=== PATIENT | male | born 1940 | race Caucasian/White ===

== ENCOUNTER 2018-04-25 01:38 | Emergency (ER) | payer MEDICARE, OTHER ==
[~2018-04-25] VITALS: Ht 167.6 cm; Wt 90.0 kg
--- NOTE | 2018-04-25 02:13 | NUR ---
PATIENT ASKED FOR MEDICATION LIST, DOES NOT HAVE LIST PATIENT STATES THAT HE WAS DOZING OFF IN HIS RECLINER AND WENT TO GET UP WHEN HE FELT REALLY DIZZY PATIENT TAKES ATIVAN 0.5 MG 12/19 TAB PRIOR TO LEAVING HOME; LAST NORCO WAS YESTERDAY PATIENT TAKES SYNTHROID, HCTZ, PLAVIX WELL
[2018-04-25 03:43] LABS: EOSINOPHILS # (AUTO) 0.2 X10'3 (0-0.9); EOSINOPHILS % (AUTO) 5.2 % (0-6); HEMATOCRIT 39.4 % (42.0-52.0); LYMPHOCYTES # (AUTO) 0.7 X10'3 (1.1-4.8); LYMPHOCYTES % (AUTO) 14.7 % (21-51); MEAN CORPUSCULAR HEMOGLOBIN 28.6 PG (27.0-31.0); MEAN CORPUSCULAR VOLUME 86.6 FL (78-98); MEAN PLATELET VOLUME 7.4 FL (7.4-10.4); MONOCYTES # (AUTO) 0.4 X10'3 (0-0.9); MONOCYTES % (AUTO) 8.5 % (2-12); NEUTROPHILS # (AUTO) 3.1 X10'3 (1.8-7.7); NEUTROPHILS % (AUTO) 70.6 % (42-75); PLATELET COUNT 268 X10'3 (140-440); RED BLOOD COUNT 4.55 X10'6 (4.70-6.10); RED CELL DISTRIBUTION WIDTH 14.9 % (11.5-14.5); WHITE BLOOD COUNT 4.4 X10'3 (4.5-11.0)
[2018-04-25 03:50] LABS: ALANINE AMINOTRANSFERASE 26 U/L (12-78); ALBUMIN 3.3 G/DL (3.4-5.0); ALBUMIN/GLOBULIN RATIO 0.9 (1.1-1.5); ALKALINE PHOSPHATASE 84 IU/L (46-116); ANION GAP 4 (8-16); ASPARTATE AMINO TRANSFERASE 16 U/L (10-37); BILIRUBIN,TOTAL 0.2 MG/DL (0.1-1.0); BLOOD UREA NITROGEN 25 MG/DL (7-18); BUN/CREATININE RATIO 19.4 (5.4-32.0); CALCIUM 9.4 MG/DL (8.5-10.1); CHLORIDE 104 MMOL/L (99-107); CREATININE 1.29 MG/DL (0.60-1.10); GLUCOSE 109 MG/DL (70-104); POTASSIUM 4.4 MMOL/L (3.5-5.1); SODIUM 140 MMOL/L (135-145); eGFR 54 ML/MIN
[2018-04-25 03:56] LABS: MAGNESIUM 2.2 MG/DL (1.5-2.4)
[2018-04-25] MEDS ORDERED: normal saline 1000ML IV soln IVB ONE (04:40)
--- NOTE | 2018-04-25 04:59 | NUR ---
PT HTN, ALL OTHER VITAL SIGNS WNL. PT STATES HE IS SO DIZZY WHEN STANDING HE CANNOT WALK. ORTHOSTATICS NEGATIVE FOR HYPOTENSION. PT MAINTAINED STANDING POSITION APPROPRIATELY. PT STATES HE CANNOT WALK HE IS TOO DIZZY, AND STATES HIS VISION IS NOW BLURRY AND HAS BEEN SINCE ARRIVING AT THE ER. MD CARMICHAEL.
--- NOTE | 2018-04-25 06:30 | NUR ---
Assumed care of patient. Patient sitting on edge of bed, states he still feels dizzy but would like to walk. Due to patient still feeling dizzy, patient redirected to lay down in bed.
[2018-04-25] MEDS ORDERED: LORazepam 1 MG tablet PO ONE (07:10)
--- NOTE | 2018-04-25 08:08 | NUR ---
Patient ambulated from room 16 to back of MD station and back to room. Patient states he is feeling better.
[2018-04-25] MEDS ORDERED: MECL-111 PO (08:16)
[2018-04-25 08:17] VITALS: BP 176/87
== END 2018-04-25 08:29 | disposition home or self-care (01) ==
LOC: ER 01:39
DX: R55 Syncope and collapse (principal); R42 Dizziness and giddiness; I44.7 Left bundle-branch block, unspecified; R00.1 Bradycardia, unspecified; R60.0 Localized edema; I11.0 Hypertensive heart disease with heart failure; I50.9 Heart failure, unspecified; E78.5 Hyperlipidemia, unspecified; E78.00 Pure hypercholesterolemia, unspecified; Z86.73 Personal history of transient ischemic attack (TIA), and cerebral infarction without residual deficits
CPT/HCPCS: 36415; 70450; 71045; 80053; 83735; 83880; 84484; 85025; 93005; 96360; 99284; J7030

== ENCOUNTER 2018-12-23 11:00 | Inpatient (IN) | payer MEDICARE ==
[~2018-12-23] VITALS: Ht 167.6 cm; Wt 96.8 kg
[~2018-12-23 11:00] MED LIST: AMLO10TA PO; BUSP5TAB3 PO; CLOP75TA35 PO; LEVO125T8 PO; LORA1TAB PO; LOSA50TA3 PO; NITR0.4T48 SL; PANT40TA4 PO; ROSU40TA PO; TRIA1CAP6 PO
[2018-12-23] MEDS ORDERED: aspirin 81mg tab.chew PO ONE (11:10)
[2018-12-23 11:54] LABS: BASOPHILS % (AUTO) 0.8 % (0-1); EOSINOPHILS # (AUTO) 0.2 X10'3 (0-0.9); EOSINOPHILS % (AUTO) 3.6 % (0-6); HEMOGLOBIN 11.4 g/dl (14.0-17.9); LYMPHOCYTES # (AUTO) 0.7 X10'3 (1.1-4.8); LYMPHOCYTES % (AUTO) 13.2 % (21-51); MEAN CORPUSCULAR HEMOGLOBIN 29.2 PG (27.0-31.0); MEAN CORPUSCULAR HGB CONC 33.6 g/dL (33.0-36.5); MEAN CORPUSCULAR VOLUME 87.1 FL (78-98); MEAN PLATELET VOLUME 7.2 FL (7.4-10.4); MONOCYTES # (AUTO) 0.4 X10'3 (0-0.9); MONOCYTES % (AUTO) 7.2 % (2-12); NEUTROPHILS # (AUTO) 3.9 X10'3 (1.8-7.7); NEUTROPHILS % (AUTO) 75.2 % (42-75); PLATELET COUNT 249 X10'3 (140-440); RED BLOOD COUNT 3.91 X10'6 (4.70-6.10); RED CELL DISTRIBUTION WIDTH 14.5 % (11.5-14.5); WHITE BLOOD COUNT 5.2 X10'3 (4.5-11.0)
[2018-12-23 12:08] LABS: ALANINE AMINOTRANSFERASE 36 U/L (12-78); ALBUMIN 3.4 G/DL (3.4-5.0); ALBUMIN/GLOBULIN RATIO 0.9 (1.1-1.5); ALKALINE PHOSPHATASE 89 IU/L (46-116); ANION GAP 5 (8-16); ASPARTATE AMINO TRANSFERASE 24 U/L (10-37); BILIRUBIN,TOTAL 0.3 MG/DL (0.1-1.0); BLOOD UREA NITROGEN 19 MG/DL (7-18); CALCIUM 8.5 MG/DL (8.5-10.1); CHLORIDE 104 MMOL/L (99-107); CREATININE 1.12 MG/DL (0.60-1.10); GLUCOSE 93 MG/DL (70-104); POTASSIUM 4.1 MMOL/L (3.5-5.1); SODIUM 139 MMOL/L (135-145); TOTAL CARBON DIOXIDE 30.1 MMOL/L (24-32); TOTAL PROTEIN 7.2 G/DL (6.4-8.2); eGFR 64 ML/MIN
[2018-12-23 12:17] LABS: MAGNESIUM 2.1 MG/DL (1.5-2.4)
[2018-12-23] MEDS ORDERED: OXYC-150 PO (12:28)
[2018-12-23] MEDS ORDERED: FURO20TA4 PO (12:29)
[2018-12-23] MEDS ORDERED: POTA-82 PO (12:29)
[2018-12-23] MEDS ORDERED: LORazepam 1 MG tablet PO ONE (12:35)
[2018-12-23 12:36] LABS: CLARITY,URINE CLEAR (Clear); COLOR,URINE YELLOW (Yellow); GLUCOSE, URINE NEGATIVE (Neg); KETONES,URINE NEGATIVE (Neg); LEUKOCYTE ESTERASE ,URINE NEGATIVE (Neg); NITRITES, URINE NEGATIVE (Neg); OCCULT BLOOD,URINE NEGATIVE (Neg); PH,URINE 5.5 (4.8-8.0); PROTEIN,URINE NEGATIVE (Neg); UROBILINOGEN,URINE 0.2 E.U/dL (0.2-1.0)
[2018-12-23 12:40] LABS: UA COLLECTION TYPE CLN CATCH MIDSTREAM
[2018-12-23] MEDS ORDERED: furosemide 10 MG/1 ML 10ml inj IV ONE (12:40)
[2018-12-23] MEDS ORDERED: magnesium hydroxide 30ml (MOM) UD suspension PO PRN (12:40)
[2018-12-23] MEDS ORDERED: acetaminophen 325mg tablet PO PRN (12:40)
[2018-12-23] MEDS ORDERED: ondansetron/PF 4mg/2ml inj IV PRN (12:40)
--- NOTE | 2018-12-23 13:35 | NUR ---
Patient in room ED 4. I have received report from ER Nurse and had the opportunity to ask questions and assume patient care.
--- NOTE | 2018-12-23 14:17 | NUR ---
Pt arrived to unit. Pt oriented to room and call light. Pt A and O x4. Pt stable, complaining of no chest pain. Pt's vitals: Temp: 98.1, HR: 63, O2: 100% 2.5 NC, RR: 16, BP: 146/58.
[2018-12-23 14:47] VITALS: BP 146/58
--- NOTE | 2018-12-23 17:08 | NUR ---
promotional table spacer PAGER ID: [phone] MESSAGE: RE: Vipin Gonzalez, Room: [facility]. Pt complaining of chronic bilateral hip pain. Pt takes [place] 10 q6hrs at home. can I put order for [place] 10 in? -[facility] #[id number] Dr. Multani paged concerning Pt's pain level and order for pain medication.
[2018-12-23] MEDS ORDERED: nitroGLYCERIN 0.4mg SUBLingual tab SL SCH (17:55)
[2018-12-23 18:00] VITALS: BP 140/69
--- NOTE | 2018-12-23 18:10 | NUR ---
report received from CHRISTINA Vogel
--- NOTE | 2018-12-23 18:10 | NUR ---
Problems reprioritized. Patient report given, questions answered & plan of care reviewed with Adonay VASQUEZ.
[2018-12-23] MEDS: furosemide 40mg/4ml inj IV SCH (20:45)
[2018-12-23] MEDS: oxyCODONE/APAP 10/325mg tablet PO PRN (20:48)
[2018-12-23] MEDS: atorvastatin 20mg tablet PO SCH (20:48)
[2018-12-23] MEDS: heparin, porcine 5000 units/ml vial SQ SCH (20:49)
[2018-12-23 22:00] VITALS: BP 132/56
[2018-12-23] MEDS: LORazepam 1 MG tablet PO SCH (23:20)
[2018-12-24] VITALS (7 sets, daily range): BP systolic 107–129; BP diastolic 40–66
[2018-12-24 05:31] LABS: ALBUMIN 3.4 G/DL (3.4-5.0); ANION GAP 3 (8-16); BLOOD UREA NITROGEN 25 MG/DL (7-18); BUN/CREATININE RATIO 19.4 (5.4-32.0); CHLORIDE 103 MMOL/L (99-107); CREATININE 1.29 MG/DL (0.60-1.10); GLUCOSE 101 MG/DL (70-104); POTASSIUM 3.9 MMOL/L (3.5-5.1); SODIUM 141 MMOL/L (135-145); TOTAL CARBON DIOXIDE 34.7 MMOL/L (24-32); eGFR 54 ML/MIN
[2018-12-24 05:34] LABS: BASOPHILS % (AUTO) 0.8 % (0-1); EOSINOPHILS # (AUTO) 0.3 X10'3 (0-0.9); EOSINOPHILS % (AUTO) 4.7 % (0-6); HEMOGLOBIN 11.5 g/dl (14.0-17.9); LYMPHOCYTES # (AUTO) 0.7 X10'3 (1.1-4.8); LYMPHOCYTES % (AUTO) 11.8 % (21-51); MEAN CORPUSCULAR HEMOGLOBIN 29.7 PG (27.0-31.0); MEAN CORPUSCULAR HGB CONC 33.9 g/dL (33.0-36.5); MEAN CORPUSCULAR VOLUME 87.5 FL (78-98); MEAN PLATELET VOLUME 7.6 FL (7.4-10.4); MONOCYTES # (AUTO) 0.5 X10'3 (0-0.9); MONOCYTES % (AUTO) 7.7 % (2-12); NEUTROPHILS # (AUTO) 4.6 X10'3 (1.8-7.7); PLATELET COUNT 249 X10'3 (140-440); RED BLOOD COUNT 3.88 X10'6 (4.70-6.10); RED CELL DISTRIBUTION WIDTH 14.3 % (11.5-14.5); WHITE BLOOD COUNT 6.1 X10'3 (4.5-11.0)
--- NOTE | 2018-12-24 06:27 | NUR ---
report given to CHRISTINA Oliveira
--- NOTE | 2018-12-24 06:46 | NUR ---
Patient in room PCU 3012. I have received report from Adonay VASQUEZ and had the opportunity to ask questions and assume patient care.
[2018-12-24] MEDS: pantoprazole 40mg Tablet.DR PO SCH (08:05)
[2018-12-24] MEDS: clopidogrel 75mg tablet PO SCH (08:05)
[2018-12-24] MEDS: levoTHYROXINE 125mcg tablet PO SCH (08:05)
[2018-12-24] MEDS: potassium chloride 10mEq ER tablet PO SCH (08:05)
[2018-12-24] MEDS: heparin, porcine 5000 units/ml vial SQ SCH ×2 (08:06→19:46)
[2018-12-24] MEDS: furosemide 40mg/4ml inj IV SCH (08:06)
[2018-12-24] MEDS: LORazepam 1 MG tablet PO SCH ×2 (08:06→15:42)
[2018-12-24] MEDS: losartan 50mg tablet PO SCH (08:19)
[2018-12-24] MEDS: oxyCODONE/APAP 10/325mg tablet PO PRN ×2 (09:59→19:46)
--- NOTE | 2018-12-24 18:07 | NUR ---
Patient in room PCU 3012C. I have received report from CHRISTINA Oliveira and had the opportunity to ask questions and assume patient care.
--- NOTE | 2018-12-24 18:23 | NUR ---
Problems reprioritized. Patient report given, questions answered & plan of care reviewed with Shanthi VASQUEZ.
[2018-12-24] MEDS: furosemide 20 MG/2 ML vial IV SCH (19:46)
[2018-12-24] MEDS: atorvastatin 20mg tablet PO SCH (20:50)
[2018-12-24] MEDS ORDERED: atorvastatin 20mg tablet PO SCH (21:00)
[2018-12-25] MEDS: LORazepam 1 MG tablet PO SCH ×3 (00:10→16:23)
[2018-12-25] MEDS: oxyCODONE/APAP 10/325mg tablet PO PRN ×3 (00:11→16:26)
[2018-12-25 02:00] VITALS: BP 106/55
--- NOTE | 2018-12-25 06:07 | NUR ---
Problems reprioritized. Patient report given, questions answered & plan of care reviewed with CHRISTINA Kolb.
[2018-12-25 06:31] LABS: BASOPHILS % (AUTO) 0.4 % (0-1); EOSINOPHILS # (AUTO) 0.1 X10'3 (0-0.9); EOSINOPHILS % (AUTO) 1.6 % (0-6); HEMATOCRIT 34.7 % (42.0-52.0); HEMOGLOBIN 11.6 g/dl (14.0-17.9); LYMPHOCYTES # (AUTO) 0.6 X10'3 (1.1-4.8); LYMPHOCYTES % (AUTO) 8.1 % (21-51); MEAN CORPUSCULAR HEMOGLOBIN 29.5 PG (27.0-31.0); MEAN CORPUSCULAR HGB CONC 33.4 g/dL (33.0-36.5); MEAN CORPUSCULAR VOLUME 88.3 FL (78-98); MEAN PLATELET VOLUME 7.7 FL (7.4-10.4); MONOCYTES # (AUTO) 0.4 X10'3 (0-0.9); MONOCYTES % (AUTO) 5.7 % (2-12); NEUTROPHILS # (AUTO) 6.2 X10'3 (1.8-7.7); NEUTROPHILS % (AUTO) 84.2 % (42-75); PLATELET COUNT 235 X10'3 (140-440); RED BLOOD COUNT 3.93 X10'6 (4.70-6.10); RED CELL DISTRIBUTION WIDTH 14.2 % (11.5-14.5); WHITE BLOOD COUNT 7.4 X10'3 (4.5-11.0)
[2018-12-25 06:43] LABS: ALBUMIN 3.5 G/DL (3.4-5.0); ANION GAP 7 (8-16); BLOOD UREA NITROGEN 40 MG/DL (7-18); CHLORIDE 102 MMOL/L (99-107); CREATININE 1.54 MG/DL (0.60-1.10); GLUCOSE 112 MG/DL (70-104); SODIUM 140 MMOL/L (135-145); TOTAL CARBON DIOXIDE 31.4 MMOL/L (24-32); eGFR 44 ML/MIN
[2018-12-25 07:00] VITALS: BP 122/52
[2018-12-25] MEDS: furosemide 20 MG/2 ML vial IV SCH ×2 (08:22→20:38)
[2018-12-25] MEDS: losartan 50mg tablet PO SCH (08:22)
[2018-12-25] MEDS: levoTHYROXINE 125mcg tablet PO SCH (08:23)
[2018-12-25] MEDS: pantoprazole 40mg Tablet.DR PO SCH (08:23)
[2018-12-25] MEDS: clopidogrel 75mg tablet PO SCH (08:23)
[2018-12-25] MEDS: heparin, porcine 5000 units/ml vial SQ SCH ×2 (08:23→20:37)
[2018-12-25] MEDS: potassium chloride 10mEq ER tablet PO SCH (09:13)
[2018-12-25 11:00] VITALS: BP 95/49
[2018-12-25 15:00] VITALS: BP 103/44
[2018-12-25 18:00] VITALS: BP 122/46
--- NOTE | 2018-12-25 18:26 | NUR ---
Problems reprioritized. Patient report given, questions answered & plan of care reviewed with Bindu VASQUEZ.
[2018-12-25] MEDS: atorvastatin 20mg tablet PO SCH (20:38)
[2018-12-25 23:00] VITALS: BP 119/35
[2018-12-26] MEDS: LORazepam 1 MG tablet PO SCH ×2 (00:05→08:08)
[2018-12-26 03:00] VITALS: BP 101/37
[2018-12-26] MEDS: mag hydrox/Alum hydrox/simeth 30ml oral suspension PO PRN ×2 (05:19→12:57)
[2018-12-26] MEDS: oxyCODONE/APAP 10/325mg tablet PO PRN ×2 (05:20→12:06)
[2018-12-26 05:23] LABS: BASOPHILS % (AUTO) 0.7 % (0-1); EOSINOPHILS # (AUTO) 0.3 X10'3 (0-0.9); EOSINOPHILS % (AUTO) 4.9 % (0-6); HEMATOCRIT 32.1 % (42.0-52.0); HEMOGLOBIN 10.8 g/dl (14.0-17.9); LYMPHOCYTES # (AUTO) 0.7 X10'3 (1.1-4.8); LYMPHOCYTES % (AUTO) 13.2 % (21-51); MEAN CORPUSCULAR HEMOGLOBIN 29.5 PG (27.0-31.0); MEAN CORPUSCULAR HGB CONC 33.6 g/dL (33.0-36.5); MEAN CORPUSCULAR VOLUME 87.7 FL (78-98); MEAN PLATELET VOLUME 7.4 FL (7.4-10.4); MONOCYTES # (AUTO) 0.5 X10'3 (0-0.9); MONOCYTES % (AUTO) 9.1 % (2-12); NEUTROPHILS # (AUTO) 3.9 X10'3 (1.8-7.7); NEUTROPHILS % (AUTO) 72.1 % (42-75); PLATELET COUNT 243 X10'3 (140-440); RED BLOOD COUNT 3.66 X10'6 (4.70-6.10); RED CELL DISTRIBUTION WIDTH 14.5 % (11.5-14.5); WHITE BLOOD COUNT 5.4 X10'3 (4.5-11.0)
--- NOTE | 2018-12-26 05:37 | NUR ---
Patient has had abdominal pain on my shift. Maalox given. Patient states he threw up in the trash. I asked him how much and he stated it was more like a small amount of mucous.
[2018-12-26 05:46] LABS: ALBUMIN 3.3 G/DL (3.4-5.0); ANION GAP 4 (8-16); BLOOD UREA NITROGEN 49 MG/DL (7-18); BUN/CREATININE RATIO 29.7 (5.4-32.0); CALCIUM 8.7 MG/DL (8.5-10.1); CHLORIDE 102 MMOL/L (99-107); CREATININE 1.65 MG/DL (0.60-1.10); GLUCOSE 106 MG/DL (70-104); POTASSIUM 3.8 MMOL/L (3.5-5.1); SODIUM 141 MMOL/L (135-145); eGFR 41 ML/MIN
[2018-12-26 06:00] VITALS: BP 128/69
--- NOTE | 2018-12-26 06:16 | NUR ---
Problems reprioritized. Patient report given, questions answered & plan of care reviewed with CHRISTINA Kolb.
--- NOTE | 2018-12-26 07:00 | NUR ---
Patient in room PCU 3012. I have received report from Candido Ruano and had the opportunity to ask questions and assume patient care.
[2018-12-26] MEDS: furosemide 20 MG/2 ML vial IV SCH (08:07)
[2018-12-26] MEDS: losartan 50mg tablet PO SCH (08:08)
[2018-12-26] MEDS: potassium chloride 10mEq ER tablet PO SCH (08:08)
[2018-12-26] MEDS: pantoprazole 40mg Tablet.DR PO SCH (08:09)
[2018-12-26] MEDS: clopidogrel 75mg tablet PO SCH (08:09)
[2018-12-26] MEDS: heparin, porcine 5000 units/ml vial SQ SCH (08:09)
[2018-12-26] MEDS: levoTHYROXINE 125mcg tablet PO SCH (08:09)
[2018-12-26] MEDS ORDERED: CLOP75TA15 PO (10:30)
[2018-12-26] MEDS ORDERED: LORA-269 PO (10:30)
[2018-12-26 11:00] VITALS: BP 137/55
--- NOTE | 2018-12-26 13:37 | NUR ---
Paged Dr. Multani regarding pt discharge medication promotional table spacer PAGER ID: [phone] MESSAGE: [id number]: Vogt - Pt is being d/c with 20mg of Lasix. Reports that per your convo with him this morning, he's supposed to be taking 40mg Lasix daily. Kindly advise! Judy [phone]
[2018-12-26] MEDS ORDERED: FURO40TA4 PO (13:48)
[2018-12-26] MEDS ORDERED: POTA-82 PO (13:52)
--- NOTE | 2018-12-26 16:26 | NUR ---
Patient was discharged at 1445 home with roommate. Discharge packet was reviewed before signing and being sent home with patient. New Rx's hard copies were given to patient to be filled tomorrow at the [facility]. PIV was removed and telemetry monitoring was discontinued. All belongings were sent home with patient. Patient was wheeled down and left via private vehicle.
== END 2018-12-26 14:45 | disposition home or self-care (01) | DRG 291 ==
LOC: ER 11:00 → ED HOLD 12:38 → PCU 3S 14:33
PROVIDERS: ADMIT Family Medicine; ATTEND Family Medicine
DX: I13.0 Hypertensive heart and chronic kidney disease with heart failure and stage 1 through stage 4 chronic kidney disease, or unspecified chronic kidney disease (principal); I50.33 Acute on chronic diastolic (congestive) heart failure; E78.5 Hyperlipidemia, unspecified; E03.9 Hypothyroidism, unspecified; E78.00 Pure hypercholesterolemia, unspecified; N18.9 Chronic kidney disease, unspecified; G89.29 Other chronic pain; M54.9 Dorsalgia, unspecified; H26.9 Unspecified cataract; Z85.46 Personal history of malignant neoplasm of prostate; Z86.73 Personal history of transient ischemic attack (TIA), and cerebral infarction without residual deficits; Z87.891 Personal history of nicotine dependence; Z95.0 Presence of cardiac pacemaker
CPT/HCPCS: 36415; 71045; 80048; 80053; 81003; 83735; 83880; 84484; 85025; 87081; 93005; 93306; 99285; G0378; J1644; J1940; J2405

== ENCOUNTER 2019-05-19 09:59 | Emergency (ER) | payer OTHER ==
[~2019-05-19] VITALS: Ht 165.1 cm; Wt 94.5 kg
[~2019-05-19 09:59] MED LIST changes: -AMLO10TA PO; +ASPI81TA52 PO; -BUSP5TAB3 PO; +FURO-149 PO; +HYDR-4353 PO; +LORA-269 PO; -LORA1TAB PO; +METO-384 PO; -PANT40TA4 PO; +POTA-82 PO; -TRIA1CAP6 PO
[2019-05-19] MEDS ORDERED: LORazepam 1 MG tablet PO ONE (10:35)
[2019-05-19] MEDS ORDERED: LORazepam 2 mg/ml vial IV ONE (10:35)
[2019-05-19] MEDS ORDERED: LORA-269 PO (11:09)
[2019-05-19 11:28] VITALS: BP 152/91
== END 2019-05-19 11:57 | disposition home or self-care (01) ==
LOC: ER 09:59
DX: F41.9 Anxiety disorder, unspecified (principal); I50.9 Heart failure, unspecified; E78.00 Pure hypercholesterolemia, unspecified; I11.0 Hypertensive heart disease with heart failure; Z86.73 Personal history of transient ischemic attack (TIA), and cerebral infarction without residual deficits; Z95.0 Presence of cardiac pacemaker; Z98.890 Other specified postprocedural states; Z79.82 Long term (current) use of aspirin; Z79.899 Other long term (current) drug therapy
CPT/HCPCS: 71045; 93005; 96366; 99284; J2060; 96374

== ENCOUNTER 2019-05-29 05:16 | Emergency (ER) | payer OTHER ==
[~2019-05-29] VITALS: Ht 167.6 cm; Wt 94.5 kg
[2019-05-29 05:30] LABS: BASOPHILS % (AUTO) 0.6 % (0-1); EOSINOPHILS # (AUTO) 0.4 X10'3 (0-0.9); EOSINOPHILS % (AUTO) 6.2 % (0-6); HEMATOCRIT 36.8 % (42.0-52.0); HEMOGLOBIN 11.9 g/dl (14.0-17.9); LYMPHOCYTES % (AUTO) 15.8 % (21-51); MEAN CORPUSCULAR HEMOGLOBIN 27.5 PG (27.0-31.0); MEAN CORPUSCULAR HGB CONC 32.5 g/dL (33.0-36.5); MEAN CORPUSCULAR VOLUME 84.5 FL (78-98); MEAN PLATELET VOLUME 7.2 FL (7.4-10.4); MONOCYTES # (AUTO) 0.5 X10'3 (0-0.9); MONOCYTES % (AUTO) 8.4 % (2-12); NEUTROPHILS # (AUTO) 4.2 X10'3 (1.8-7.7); PLATELET COUNT 287 X10'3 (140-440); RED BLOOD COUNT 4.35 X10'6 (4.70-6.10); RED CELL DISTRIBUTION WIDTH 15.1 % (11.5-14.5); WHITE BLOOD COUNT 6.1 X10'3 (4.5-11.0)
[2019-05-29 05:43] LABS: ALANINE AMINOTRANSFERASE 24 U/L (12-78); ALBUMIN 3.5 G/DL (3.4-5.0); ALBUMIN/GLOBULIN RATIO 0.8 (1.1-1.5); ALKALINE PHOSPHATASE 97 IU/L (46-116); ANION GAP 6 (8-16); ASPARTATE AMINO TRANSFERASE 18 U/L (10-37); BILIRUBIN,TOTAL 0.2 MG/DL (0.1-1.0); BLOOD UREA NITROGEN 18 MG/DL (7-18); BUN/CREATININE RATIO 14.3 (5.4-32.0); CALCIUM 9.2 MG/DL (8.5-10.1); CHLORIDE 104 MMOL/L (99-107); CREATININE 1.26 MG/DL (0.60-1.10); GLUCOSE 111 MG/DL (70-104); SODIUM 141 MMOL/L (135-145); TOTAL CARBON DIOXIDE 30.7 MMOL/L (24-32); TOTAL PROTEIN 7.8 G/DL (6.4-8.2); eGFR 55 ML/MIN
[2019-05-29 05:51] LABS: MAGNESIUM 2.5 MG/DL (1.5-2.4)
[2019-05-29] MEDS ORDERED: LORazepam 2 mg/ml vial IV ONE (06:00)
[2019-05-29] MEDS ORDERED: LIDOcaine Viscous 15ml cup MM ONE (07:20)
[2019-05-29] MEDS ORDERED: sucralfate 1gm/10ml UD suspension PO STA (07:20)
[2019-05-29] MEDS ORDERED: mag hydrox/Alum hydrox/simeth 30ml oral suspension PO ONE (07:20)
[2019-05-29] MEDS ORDERED: SUCR1TAB34 PO (09:30)
[2019-05-29 10:28] VITALS: BP 149/50
== END 2019-05-29 10:29 | disposition home or self-care (01) ==
LOC: ER 05:16
DX: R07.89 Other chest pain (principal); R10.13 Epigastric pain; M25.532 Pain in left wrist; R42 Dizziness and giddiness; I50.9 Heart failure, unspecified; E78.00 Pure hypercholesterolemia, unspecified; I11.0 Hypertensive heart disease with heart failure; F41.9 Anxiety disorder, unspecified; Z95.0 Presence of cardiac pacemaker; Z98.890 Other specified postprocedural states; Z79.82 Long term (current) use of aspirin; Z79.899 Other long term (current) drug therapy
CPT/HCPCS: 36415; 71045; 73100; 80053; 83735; 83880; 84484; 85025; 93005; 96374; 99285; J2060

== ENCOUNTER 2019-08-27 19:36 | Emergency (ER) | payer OTHER, MEDICARE ==
[~2019-08-27] VITALS: Ht 167.6 cm; Wt 95.9 kg
[~2019-08-27 19:36] MED LIST changes: -NITR0.4T48 SL; +SUCR1TAB34 PO
[2019-08-27] MEDS ORDERED: LORazepam 1 MG tablet PO ONE ×2 (19:45→20:35)
[2019-08-27] MEDS ORDERED: ondansetron 4mg rapidly disintigrating tab PO ONE (19:55)
[2019-08-27 20:59] VITALS: BP 145/59
== END 2019-08-27 21:00 | disposition home or self-care (01) ==
LOC: ER 19:37
DX: F41.9 Anxiety disorder, unspecified (principal); I11.0 Hypertensive heart disease with heart failure; I50.9 Heart failure, unspecified; E78.00 Pure hypercholesterolemia, unspecified; Z86.73 Personal history of transient ischemic attack (TIA), and cerebral infarction without residual deficits; Z95.0 Presence of cardiac pacemaker; Z79.82 Long term (current) use of aspirin; Z79.899 Other long term (current) drug therapy
CPT/HCPCS: 99284

== ENCOUNTER 2020-05-02 21:23 | Emergency (ER) | payer OTHER, MEDICARE ==
[~2020-05-02] VITALS: Ht 167.6 cm; Wt 98.0 kg
[~2020-05-02 21:23] MED LIST changes: +CLOP75TA34 PO; -CLOP75TA35 PO
[2020-05-02] MEDS ORDERED: LORazepam 1 MG tablet PO ONE (23:05)
[2020-05-02 23:43] VITALS: BP 166/69
[2020-05-02] MEDS ORDERED: oxyCODONE/APAP 5-325mg tablet PO ONE (23:55)
== END 2020-05-03 00:09 | disposition home or self-care (01) ==
LOC: ER 21:24
DX: R07.89 Other chest pain (principal); I50.9 Heart failure, unspecified; I11.0 Hypertensive heart disease with heart failure; E78.00 Pure hypercholesterolemia, unspecified; F41.9 Anxiety disorder, unspecified; Z86.73 Personal history of transient ischemic attack (TIA), and cerebral infarction without residual deficits; Z95.0 Presence of cardiac pacemaker; Z79.82 Long term (current) use of aspirin; Z79.899 Other long term (current) drug therapy
CPT/HCPCS: 71045; 93005; 99284

== ENCOUNTER 2020-06-03 23:28 | Emergency (ER) | payer OTHER, MEDICARE ==
[~2020-06-03] VITALS: Ht 167.6 cm; Wt 95.5 kg
[2020-06-03] MEDS ORDERED: LORazepam 0.5 MG tablet PO ONE (23:55)
[2020-06-03] MEDS ORDERED: aspirin 81mg tab.chew PO ONE (23:55)
[2020-06-04 00:22] LABS: BASOPHILS # (AUTO) 0.1 X10'3 (0-0.2); BASOPHILS % (AUTO) 0.9 % (0-1); EOSINOPHILS # (AUTO) 0.3 X10'3 (0-0.9); EOSINOPHILS % (AUTO) 4.7 % (0-6); HEMATOCRIT 39.3 % (42.0-52.0); HEMOGLOBIN 12.9 g/dl (14.0-17.9); LYMPHOCYTES # (AUTO) 1.1 X10'3 (1.1-4.8); LYMPHOCYTES % (AUTO) 15.8 % (21-51); MEAN CORPUSCULAR HEMOGLOBIN 27.6 PG (27.0-31.0); MEAN CORPUSCULAR HGB CONC 32.7 g/dL (33.0-36.5); MEAN CORPUSCULAR VOLUME 84.2 FL (78-98); MEAN PLATELET VOLUME 7.8 FL (7.4-10.4); MONOCYTES # (AUTO) 0.6 X10'3 (0-0.9); MONOCYTES % (AUTO) 8.3 % (2-12); NEUTROPHILS # (AUTO) 4.8 X10'3 (1.8-7.7); NEUTROPHILS % (AUTO) 70.3 % (42-75); PLATELET COUNT 280 X10'3 (140-440); RED BLOOD COUNT 4.67 X10'6 (4.70-6.10); RED CELL DISTRIBUTION WIDTH 15.1 % (11.5-14.5); WHITE BLOOD COUNT 6.9 X10'3 (4.5-11.0)
[2020-06-04 00:28] LABS: ALANINE AMINOTRANSFERASE 23 U/L (12-78); ALBUMIN 3.5 G/DL (3.4-5.0); ALBUMIN/GLOBULIN RATIO 0.9 (1.1-1.5); ALKALINE PHOSPHATASE 115 IU/L (46-116); ANION GAP 8 (8-16); ASPARTATE AMINO TRANSFERASE 15 U/L (10-37); BILIRUBIN,TOTAL 0.3 MG/DL (0.1-1.0); BLOOD UREA NITROGEN 17 MG/DL (7-18); BUN/CREATININE RATIO 13.5 (5.4-32.0); CALCIUM 8.7 MG/DL (8.5-10.1); CHLORIDE 103 MMOL/L (99-107); CREATININE 1.26 MG/DL (0.60-1.10); GLUCOSE 117 MG/DL (70-104); POTASSIUM 4.1 MMOL/L (3.5-5.1); SODIUM 143 MMOL/L (135-145); TOTAL CARBON DIOXIDE 32.3 MMOL/L (24-32); TOTAL PROTEIN 7.4 G/DL (6.4-8.2); eGFR 55 ML/MIN
[2020-06-04 00:35] LABS: MAGNESIUM 2.2 MG/DL (1.5-2.4)
[2020-06-04 01:47] VITALS: BP 171/117
== END 2020-06-04 01:50 | disposition home or self-care (01) ==
LOC: ER 23:29
DX: F41.1 Generalized anxiety disorder (principal); R42 Dizziness and giddiness; R07.89 Other chest pain; I50.9 Heart failure, unspecified; E78.00 Pure hypercholesterolemia, unspecified; I10 Essential (primary) hypertension; Z86.73 Personal history of transient ischemic attack (TIA), and cerebral infarction without residual deficits; Z95.0 Presence of cardiac pacemaker; Z79.82 Long term (current) use of aspirin; Z79.899 Other long term (current) drug therapy
CPT/HCPCS: 36415; 71045; 80053; 83735; 83880; 84484; 85025; 93005; 99285

== ENCOUNTER 2020-06-06 07:55 | Emergency (ER) | payer OTHER, MEDICARE ==
[~2020-06-06] VITALS: Ht 167.6 cm; Wt 95.5 kg
[2020-06-06] MEDS ORDERED: LORazepam 1 MG tablet PO ONE (08:10)
[2020-06-06] MEDS ORDERED: LORA-269 PO (08:17)
[2020-06-06 08:29] VITALS: BP 190/64
== END 2020-06-06 08:41 | disposition home or self-care (01) ==
LOC: ER 07:55
DX: F41.9 Anxiety disorder, unspecified (principal); I11.0 Hypertensive heart disease with heart failure; I50.9 Heart failure, unspecified; E78.00 Pure hypercholesterolemia, unspecified; Z86.73 Personal history of transient ischemic attack (TIA), and cerebral infarction without residual deficits; Z95.0 Presence of cardiac pacemaker; Z79.82 Long term (current) use of aspirin; Z79.899 Other long term (current) drug therapy
CPT/HCPCS: 99283

== ENCOUNTER 2020-10-12 10:27 | Emergency (ER) | payer OTHER, MEDICARE ==
[~2020-10-12] VITALS: Ht 165.1 cm; Wt 85.0 kg
[2020-10-12 10:57] LABS: CLARITY,URINE CLEAR (Clear); COLOR,URINE STRAW (Yellow); GLUCOSE, URINE NEGATIVE (Neg); KETONES,URINE NEGATIVE (Neg); LEUKOCYTE ESTERASE ,URINE NEGATIVE (Neg); NITRITES, URINE NEGATIVE (Neg); OCCULT BLOOD,URINE NEGATIVE (Neg); PROTEIN,URINE NEGATIVE (Neg); UROBILINOGEN,URINE 0.2 E.U/dL (0.2-1.0)
[2020-10-12 11:07] LABS: UA COLLECTION TYPE CLN CATCH MIDSTREAM
[2020-10-12 11:25] VITALS: BP 199/96
[2020-10-12] MEDS ORDERED: LORazepam 1 MG tablet PO ONE (12:05)
[2020-10-12] MEDS ORDERED: bisacodyl 5mg tablet.DR PO ONE (12:05)
[2020-10-12 12:07] LABS: BASOPHILS % (AUTO) 0.6 % (0-1); EOSINOPHILS # (AUTO) 0.2 X10'3 (0-0.9); EOSINOPHILS % (AUTO) 2.5 % (0-6); HEMATOCRIT 38.9 % (42.0-52.0); HEMOGLOBIN 12.6 g/dl (14.0-17.9); LYMPHOCYTES # (AUTO) 0.7 X10'3 (1.1-4.8); LYMPHOCYTES % (AUTO) 11.7 % (21-51); MEAN CORPUSCULAR HEMOGLOBIN 27.1 PG (27.0-31.0); MEAN CORPUSCULAR HGB CONC 32.3 g/dL (33.0-36.5); MEAN CORPUSCULAR VOLUME 83.8 FL (78-98); MEAN PLATELET VOLUME 7.5 FL (7.4-10.4); MONOCYTES # (AUTO) 0.5 X10'3 (0-0.9); MONOCYTES % (AUTO) 8.2 % (2-12); NEUTROPHILS # (AUTO) 4.8 X10'3 (1.8-7.7); PLATELET COUNT 316 X10'3 (140-440); RED BLOOD COUNT 4.65 X10'6 (4.70-6.10); RED CELL DISTRIBUTION WIDTH 15.2 % (11.5-14.5); WHITE BLOOD COUNT 6.2 X10'3 (4.5-11.0)
[2020-10-12 12:17] LABS: ALANINE AMINOTRANSFERASE 26 U/L (12-78); ALBUMIN 3.3 G/DL (3.4-5.0); ALBUMIN/GLOBULIN RATIO 0.8 (1.1-1.5); ALKALINE PHOSPHATASE 103 IU/L (46-116); ANION GAP 7 (8-16); ASPARTATE AMINO TRANSFERASE 16 U/L (10-37); BILIRUBIN,TOTAL 0.2 MG/DL (0.1-1.0); BLOOD UREA NITROGEN 15 MG/DL (7-18); BUN/CREATININE RATIO 12.3 (5.4-32.0); CALCIUM 9.6 MG/DL (8.5-10.1); CHLORIDE 103 MMOL/L (99-107); CREATININE 1.22 MG/DL (0.60-1.10); GLUCOSE 102 MG/DL (70-104); LIPASE 57 U/L (73-393); POTASSIUM 4.4 MMOL/L (3.5-5.1); SODIUM 141 MMOL/L (135-145); TOTAL CARBON DIOXIDE 30.6 MMOL/L (24-32); TOTAL PROTEIN 7.4 G/DL (6.4-8.2); eGFR 57 ML/MIN
[2020-10-12] MEDS ORDERED: BISA-155 PO (12:44)
[2020-10-12] MEDS ORDERED: AMOX-422 PO (12:44)
== END 2020-10-12 13:03 | disposition home or self-care (01) ==
LOC: ER 10:28
DX: K59.00 Constipation, unspecified (principal); K57.92 Diverticulitis of intestine, part unspecified, without perforation or abscess without bleeding; I11.0 Hypertensive heart disease with heart failure; I25.10 Atherosclerotic heart disease of native coronary artery without angina pectoris; E78.00 Pure hypercholesterolemia, unspecified; Z86.73 Personal history of transient ischemic attack (TIA), and cerebral infarction without residual deficits; Z95.0 Presence of cardiac pacemaker; Z79.82 Long term (current) use of aspirin; Z79.899 Other long term (current) drug therapy
CPT/HCPCS: 36415; 74176; 80053; 81003; 83605; 83690; 85025; 99284

== ENCOUNTER 2020-10-19 04:28 | Emergency (ER) | payer OTHER, MEDICARE ==
[~2020-10-19] VITALS: Ht 167.6 cm; Wt 97.7 kg
[~2020-10-19 04:28] MED LIST changes: +AMOX-422 PO; +BISA-155 PO
[2020-10-19 05:05] VITALS: BP 204/84
[2020-10-19] MEDS ORDERED: LORazepam 1 MG tablet PO STA (05:14)
[2020-10-19 05:48] LABS: BASOPHILS # (AUTO) 0.1 X10'3 (0-0.2); BASOPHILS % (AUTO) 0.9 % (0-1); EOSINOPHILS # (AUTO) 0.3 X10'3 (0-0.9); EOSINOPHILS % (AUTO) 4.2 % (0-6); HEMATOCRIT 40.4 % (42.0-52.0); HEMOGLOBIN 12.8 g/dl (14.0-17.9); LYMPHOCYTES # (AUTO) 0.7 X10'3 (1.1-4.8); LYMPHOCYTES % (AUTO) 11.1 % (21-51); MEAN CORPUSCULAR HEMOGLOBIN 26.8 PG (27.0-31.0); MEAN CORPUSCULAR HGB CONC 31.7 g/dL (33.0-36.5); MEAN CORPUSCULAR VOLUME 84.5 FL (78-98); MEAN PLATELET VOLUME 7.4 FL (7.4-10.4); MONOCYTES # (AUTO) 0.4 X10'3 (0-0.9); MONOCYTES % (AUTO) 6.7 % (2-12); NEUTROPHILS # (AUTO) 4.8 X10'3 (1.8-7.7); NEUTROPHILS % (AUTO) 77.1 % (42-75); PLATELET COUNT 348 X10'3 (140-440); RED BLOOD COUNT 4.78 X10'6 (4.70-6.10); RED CELL DISTRIBUTION WIDTH 15.5 % (11.5-14.5); WHITE BLOOD COUNT 6.3 X10'3 (4.5-11.0)
[2020-10-19 06:04] LABS: ALANINE AMINOTRANSFERASE 21 U/L (12-78); ALBUMIN 3.5 G/DL (3.4-5.0); ALBUMIN/GLOBULIN RATIO 0.9 (1.1-1.5); ALKALINE PHOSPHATASE 110 IU/L (46-116); ANION GAP 4 (8-16); ASPARTATE AMINO TRANSFERASE 22 U/L (10-37); BILIRUBIN,TOTAL 0.3 MG/DL (0.1-1.0); BLOOD UREA NITROGEN 15 MG/DL (7-18); BUN/CREATININE RATIO 12.9 (5.4-32.0); CALCIUM 8.8 MG/DL (8.5-10.1); CHLORIDE 106 MMOL/L (99-107); CREATININE 1.16 MG/DL (0.60-1.10); GLUCOSE 101 MG/DL (70-104); POTASSIUM 4.4 MMOL/L (3.5-5.1); SODIUM 141 MMOL/L (135-145); TOTAL CARBON DIOXIDE 31.4 MMOL/L (24-32); TOTAL PROTEIN 7.6 G/DL (6.4-8.2); eGFR 61 ML/MIN
[2020-10-19] MEDS ORDERED: ONDA4TAB12 PO (08:06)
== END 2020-10-19 08:07 | disposition home or self-care (01) ==
LOC: ER 04:28
DX: R10.84 Generalized abdominal pain (principal); R19.7 Diarrhea, unspecified; R07.89 Other chest pain; I50.9 Heart failure, unspecified; I11.0 Hypertensive heart disease with heart failure; E78.00 Pure hypercholesterolemia, unspecified; Z95.0 Presence of cardiac pacemaker; Z86.73 Personal history of transient ischemic attack (TIA), and cerebral infarction without residual deficits; Z79.2 Long term (current) use of antibiotics; Z79.82 Long term (current) use of aspirin; Z79.899 Other long term (current) drug therapy
CPT/HCPCS: 36415; 80053; 85025; 93005; 99284

== ENCOUNTER 2020-10-22 04:53 | Emergency (ER) | payer OTHER, MEDICARE ==
[~2020-10-22] VITALS: Ht 165.1 cm; Wt 97.7 kg
[~2020-10-22 04:53] MED LIST changes: +ONDA4TAB12 PO
[2020-10-22] MEDS ORDERED: LORazepam 1 MG tablet PO ONE (05:30)
[2020-10-22 07:17] VITALS: BP 165/74
== END 2020-10-22 09:34 | disposition home or self-care (01) ==
LOC: ER 04:53
DX: F41.9 Anxiety disorder, unspecified (principal); R10.84 Generalized abdominal pain; R07.89 Other chest pain; K59.00 Constipation, unspecified; I11.0 Hypertensive heart disease with heart failure; I50.9 Heart failure, unspecified; E78.00 Pure hypercholesterolemia, unspecified; G89.29 Other chronic pain; Z86.73 Personal history of transient ischemic attack (TIA), and cerebral infarction without residual deficits; Z95.0 Presence of cardiac pacemaker; Z79.2 Long term (current) use of antibiotics; Z79.899 Other long term (current) drug therapy
CPT/HCPCS: 74018; 93005; 99283

== ENCOUNTER 2021-02-07 03:29 | Emergency (ER) | payer OTHER, MEDICARE ==
[~2021-02-07] VITALS: Ht 167.6 cm; Wt 97.7 kg
[~2021-02-07 03:29] MED LIST changes: -AMOX-422 PO
[2021-02-07] MEDS ORDERED: LORazepam 1 MG tablet PO ONE ×2 (04:35→07:00)
[2021-02-07 05:45] LABS: EOSINOPHILS # (AUTO) 0.1 X10'3 (0-0.9); HEMOGLOBIN 11.4 g/dl (14.0-17.9); LYMPHOCYTES # (AUTO) 0.6 X10'3 (1.1-4.8); MONOCYTES # (AUTO) 0.4 X10'3 (0-0.9)
[2021-02-07 05:47] LABS: BASOPHILS % (AUTO) 0.6 % (0-1); EOSINOPHILS % (AUTO) 2.2 % (0-6); LYMPHOCYTES % (AUTO) 9.3 % (21-51); MEAN CORPUSCULAR HEMOGLOBIN 26.3 PG (27.0-31.0); MEAN CORPUSCULAR HGB CONC 32.6 g/dL (33.0-36.5); MEAN CORPUSCULAR VOLUME 80.7 FL (78-98); MEAN PLATELET VOLUME 8.3 FL (7.4-10.4); NEUTROPHILS # (AUTO) 5.4 X10'3 (1.8-7.7); NEUTROPHILS % (AUTO) 81.9 % (42-75); PLATELET COUNT 329 X10'3 (140-440); RED BLOOD COUNT 4.34 X10'6 (4.70-6.10); RED CELL DISTRIBUTION WIDTH 15.1 % (11.5-14.5); WHITE BLOOD COUNT 6.6 X10'3 (4.5-11.0)
[2021-02-07 05:57] LABS: ALBUMIN 3.4 G/DL (3.4-5.0); ANION GAP 6 (8-16); BLOOD UREA NITROGEN 17 MG/DL (7-18); BUN/CREATININE RATIO 14.9 (5.4-32.0); CALCIUM 9.2 MG/DL (8.5-10.1); CHLORIDE 103 MMOL/L (99-107); CREATININE 1.14 MG/DL (0.60-1.10); GLUCOSE 107 MG/DL (70-104); POTASSIUM 3.8 MMOL/L (3.5-5.1); SODIUM 139 MMOL/L (135-145); TOTAL CARBON DIOXIDE 29.9 MMOL/L (24-32); eGFR 62 ML/MIN
--- NOTE | 2021-02-07 06:33 | NUR ---
Patient resting quietly; no distress.
[2021-02-07 06:45] VITALS: BP 189/93
== END 2021-02-07 07:15 | disposition left against medical advice (07) ==
LOC: ER 03:29
DX: F41.9 Anxiety disorder, unspecified (principal); R07.89 Other chest pain; R06.02 Shortness of breath; I11.0 Hypertensive heart disease with heart failure; I50.9 Heart failure, unspecified; E78.00 Pure hypercholesterolemia, unspecified; G89.29 Other chronic pain; Z86.73 Personal history of transient ischemic attack (TIA), and cerebral infarction without residual deficits; Z95.0 Presence of cardiac pacemaker; Z79.82 Long term (current) use of aspirin; Z79.899 Other long term (current) drug therapy
CPT/HCPCS: 36415; 71045; 80048; 84484; 85025; 93005; 99285

== ENCOUNTER 2021-02-11 07:26 | Emergency (ER) | payer OTHER, MEDICARE ==
[~2021-02-11] VITALS: Ht 167.6 cm; Wt 113.6 kg
[2021-02-11] MEDS ORDERED: aspirin 81mg tab.chew PO ONE (07:55)
[2021-02-11 08:07] VITALS: BP_DIAS 72
[2021-02-11 08:10] LABS: BASOPHILS # (AUTO) 0.1 X10'3 (0-0.2); BASOPHILS % (AUTO) 0.6 % (0-1); EOSINOPHILS # (AUTO) 0.2 X10'3 (0-0.9); EOSINOPHILS % (AUTO) 2.8 % (0-6); HEMATOCRIT 36.8 % (42.0-52.0); HEMOGLOBIN 11.8 g/dl (14.0-17.9); LYMPHOCYTES # (AUTO) 1.2 X10'3 (1.1-4.8); LYMPHOCYTES % (AUTO) 13.6 % (21-51); MEAN CORPUSCULAR HEMOGLOBIN 26.2 PG (27.0-31.0); MEAN CORPUSCULAR VOLUME 81.8 FL (78-98); MONOCYTES # (AUTO) 0.6 X10'3 (0-0.9); MONOCYTES % (AUTO) 7.4 % (2-12); NEUTROPHILS # (AUTO) 6.5 X10'3 (1.8-7.7); NEUTROPHILS % (AUTO) 75.6 % (42-75); PLATELET COUNT 411 X10'3 (140-440); RED CELL DISTRIBUTION WIDTH 15.9 % (11.5-14.5); WHITE BLOOD COUNT 8.6 X10'3 (4.5-11.0)
[2021-02-11 08:28] LABS: ALANINE AMINOTRANSFERASE 24 U/L (12-78); ALBUMIN 3.5 G/DL (3.4-5.0); ALBUMIN/GLOBULIN RATIO 0.8 (1.1-1.5); ALKALINE PHOSPHATASE 109 IU/L (46-116); ANION GAP 9 (8-16); ASPARTATE AMINO TRANSFERASE 12 U/L (10-37); BILIRUBIN,TOTAL 0.3 MG/DL (0.1-1.0); BLOOD UREA NITROGEN 18 MG/DL (7-18); BUN/CREATININE RATIO 16.2 (5.4-32.0); CALCIUM 8.8 MG/DL (8.5-10.1); CHLORIDE 107 MMOL/L (99-107); CREATININE 1.11 MG/DL (0.60-1.10); GLUCOSE 113 MG/DL (70-104); POTASSIUM 4.1 MMOL/L (3.5-5.1); SODIUM 143 MMOL/L (135-145); TOTAL CARBON DIOXIDE 26.7 MMOL/L (24-32); TOTAL PROTEIN 7.7 G/DL (6.4-8.2); eGFR 64 ML/MIN
[2021-02-11] MEDS ORDERED: diltiazem 5mg/ml 5ml inj. IV ONE (09:05)
[2021-02-11] MEDS ORDERED: diltiazem-NS 100mg/100ml 100 ML IV ONE (09:05)
[2021-02-11] MEDS ORDERED: furosemide 10 MG/1 ML 10ml inj IV ONE (09:05)
[2021-02-11 09:23] LABS: MAGNESIUM 2.2 MG/DL (1.5-2.4)
--- NOTE | 2021-02-11 09:26 | NUR ---
pt states he wants to leave since he "hasnt received any ativan yet." irena vargas made aware of pt statement and request
[2021-02-11] MEDS ORDERED: losartan 50mg tablet PO STA (09:33)
[2021-02-11] MEDS ORDERED: ipratropium/albuterol 3ml nebule NEB ONE (09:35)
[2021-02-11] MEDS ORDERED: methylPREDNISolone sod succ 125mg/2ml vial IV ONE (09:35)
[2021-02-11] MEDS ORDERED: clopidogrel 75mg tablet PO STA (09:35)
[2021-02-11] MEDS ORDERED: LORazepam 1 MG tablet PO ONE (09:35)
[2021-02-11] MEDS ORDERED: furosemide 40mg/4ml inj IV ONE (09:40)
[2021-02-11 09:57] VITALS: BP_SYST 173
[2021-02-11] MEDS ORDERED: LIDOcaine Viscous 15ml cup MM ONE (10:15)
[2021-02-11] MEDS ORDERED: PRED20TA PO (10:19)
[2021-02-11] MEDS ORDERED: AZIT-31 PO (10:19)
== END 2021-02-11 11:18 | disposition home or self-care (01) ==
LOC: ER 07:27
DX: J96.20 Acute and chronic respiratory failure, unspecified whether with hypoxia or hypercapnia (principal); Z20.822 Contact with and (suspected) exposure to COVID-19; F41.9 Anxiety disorder, unspecified; R07.89 Other chest pain; R05.9 Cough, unspecified; I50.9 Heart failure, unspecified; I11.0 Hypertensive heart disease with heart failure; E78.00 Pure hypercholesterolemia, unspecified; G89.29 Other chronic pain; Z86.73 Personal history of transient ischemic attack (TIA), and cerebral infarction without residual deficits; Z85.9 Personal history of malignant neoplasm, unspecified; Z95.0 Presence of cardiac pacemaker; Z79.82 Long term (current) use of aspirin; Z79.2 Long term (current) use of antibiotics; Z79.899 Other long term (current) drug therapy
CPT/HCPCS: 36415; 71045; 80053; 83735; 83880; 84484; 85025; 87635; 93005; 94640; 96374; 96375; 99285; C9803; J1940; J2930; 94760

== ENCOUNTER 2021-02-11 23:58 | Emergency (ER) | payer OTHER, MEDICARE ==
[~2021-02-11] VITALS: Ht 167.6 cm; Wt 97.7 kg
[~2021-02-11 23:58] MED LIST changes: +AZIT-31 PO; +PRED20TA PO
[2021-02-12] MEDS ORDERED: LORazepam 1 MG tablet PO ONE (00:15)
[2021-02-12] MEDS ORDERED: acetaminophen 325mg tablet PO ONE (00:15)
[2021-02-12] MEDS ORDERED: ipratropium/albuterol 3ml nebule NEB ONE (00:15)
[2021-02-12 01:24] VITALS: BP 133/57
== END 2021-02-12 03:26 | disposition home or self-care (01) ==
LOC: ER 23:59
DX: J02.9 Acute pharyngitis, unspecified (principal); R05.9 Cough, unspecified; E78.00 Pure hypercholesterolemia, unspecified; I11.0 Hypertensive heart disease with heart failure; I50.9 Heart failure, unspecified; G89.29 Other chronic pain; Z85.9 Personal history of malignant neoplasm, unspecified; Z95.0 Presence of cardiac pacemaker; Z79.82 Long term (current) use of aspirin; Z79.2 Long term (current) use of antibiotics; Z79.899 Other long term (current) drug therapy
CPT/HCPCS: 87081; 87502; 87503; 87880; 93005; 94640; 94760; 99284

== ENCOUNTER 2021-02-23 05:01 | Emergency (ER) | payer OTHER, MEDICARE ==
[~2021-02-23] VITALS: Ht 167.6 cm; Wt 97.7 kg
[~2021-02-23 05:01] MED LIST changes: -AZIT-31 PO; -PRED20TA PO
--- NOTE | 2021-02-23 05:11 | NUR ---
Patient Started a z-pack on 02/11/2022 and states he finished all the medication
[2021-02-23] MEDS ORDERED: LORazepam 1 MG tablet PO ONE (06:25)
[2021-02-23] MEDS ORDERED: furosemide 20MG tablet PO ONE (06:45)
[2021-02-23 07:13] LABS: BASOPHILS # (AUTO) 0.1 X10'3 (0-0.2); BASOPHILS % (AUTO) 0.7 % (0-1); EOSINOPHILS # (AUTO) 0.1 X10'3 (0-0.9); EOSINOPHILS % (AUTO) 1.7 % (0-6); HEMATOCRIT 33.5 % (42.0-52.0); HEMOGLOBIN 10.6 g/dl (14.0-17.9); LYMPHOCYTES # (AUTO) 0.7 X10'3 (1.1-4.8); LYMPHOCYTES % (AUTO) 8.6 % (21-51); MEAN CORPUSCULAR HEMOGLOBIN 25.6 PG (27.0-31.0); MEAN CORPUSCULAR HGB CONC 31.7 g/dL (33.0-36.5); MEAN CORPUSCULAR VOLUME 80.6 FL (78-98); MEAN PLATELET VOLUME 7.5 FL (7.4-10.4); MONOCYTES # (AUTO) 0.5 X10'3 (0-0.9); MONOCYTES % (AUTO) 5.6 % (2-12); NEUTROPHILS % (AUTO) 83.4 % (42-75); PLATELET COUNT 339 X10'3 (140-440); RED BLOOD COUNT 4.15 X10'6 (4.70-6.10); RED CELL DISTRIBUTION WIDTH 15.7 % (11.5-14.5); WHITE BLOOD COUNT 8.4 X10'3 (4.5-11.0)
[2021-02-23 07:25] LABS: ALANINE AMINOTRANSFERASE 14 U/L (12-78); ALBUMIN 2.9 G/DL (3.4-5.0); ALBUMIN/GLOBULIN RATIO 0.7 (1.1-1.5); ALKALINE PHOSPHATASE 110 IU/L (46-116); ANION GAP 7 (8-16); ASPARTATE AMINO TRANSFERASE 11 U/L (10-37); BILIRUBIN,TOTAL 0.3 MG/DL (0.1-1.0); BLOOD UREA NITROGEN 13 MG/DL (7-18); BUN/CREATININE RATIO 12.6 (5.4-32.0); CALCIUM 8.4 MG/DL (8.5-10.1); CHLORIDE 103 MMOL/L (99-107); CREATININE 1.03 MG/DL (0.60-1.10); GLUCOSE 102 MG/DL (70-104); POTASSIUM 4.7 MMOL/L (3.5-5.1); SODIUM 140 MMOL/L (135-145); TOTAL CARBON DIOXIDE 30.3 MMOL/L (24-32); TOTAL PROTEIN 6.8 G/DL (6.4-8.2); eGFR 70 ML/MIN
[2021-02-23] MEDS ORDERED: FURO40TA4 PO (07:52)
[2021-02-23] MEDS ORDERED: POTA-207 PO (07:52)
[2021-02-23 07:54] VITALS: BP 141/60
== END 2021-02-23 08:53 | disposition home or self-care (01) ==
LOC: ER 05:01
DX: I11.0 Hypertensive heart disease with heart failure (principal); Z20.822 Contact with and (suspected) exposure to COVID-19; I50.9 Heart failure, unspecified; E78.00 Pure hypercholesterolemia, unspecified; G89.29 Other chronic pain; Z86.73 Personal history of transient ischemic attack (TIA), and cerebral infarction without residual deficits; Z85.9 Personal history of malignant neoplasm, unspecified; Z95.0 Presence of cardiac pacemaker; Z79.82 Long term (current) use of aspirin; Z79.899 Other long term (current) drug therapy
CPT/HCPCS: 36415; 71045; 80053; 83605; 83880; 85025; 87040; 87635; 99284; C9803

== ENCOUNTER 2021-04-02 11:03 | Emergency (ER) | payer OTHER, MEDICARE ==
[~2021-04-02] VITALS: Ht 177.8 cm; Wt 100.0 kg
[2021-04-02 11:07] VITALS: BP 167/59
[2021-04-02] MEDS: LORazepam 1 MG tablet PO ONE ×2 (12:01→12:39)
[2021-04-02] MEDS ORDERED: LORA-269 PO (12:23)
== END 2021-04-02 12:43 | disposition home or self-care (01) ==
LOC: ER 11:03
DX: F41.9 Anxiety disorder, unspecified (principal); R07.89 Other chest pain; R06.02 Shortness of breath; R05.9 Cough, unspecified; I11.0 Hypertensive heart disease with heart failure; I50.9 Heart failure, unspecified; E78.00 Pure hypercholesterolemia, unspecified; G89.29 Other chronic pain; Z86.73 Personal history of transient ischemic attack (TIA), and cerebral infarction without residual deficits; Z85.9 Personal history of malignant neoplasm, unspecified; Z95.0 Presence of cardiac pacemaker; Z79.82 Long term (current) use of aspirin; Z79.899 Other long term (current) drug therapy
CPT/HCPCS: 99283

== ENCOUNTER 2021-05-29 06:51 | Emergency (ER) | payer OTHER, MEDICARE ==
[~2021-05-29] VITALS: Ht 167.6 cm; Wt 95.5 kg
[2021-05-29] MEDS ORDERED: LORazepam 1 MG tablet PO ONE ×2 (07:50→08:45)
[2021-05-29] MEDS ORDERED: LORA-269 PO (08:26)
[2021-05-29 09:34] VITALS: BP 166/79
== END 2021-05-29 09:36 | disposition home or self-care (01) ==
LOC: ER 06:52
DX: F13.239 Sedative, hypnotic or anxiolytic dependence with withdrawal, unspecified (principal); I11.0 Hypertensive heart disease with heart failure; I50.9 Heart failure, unspecified; E78.00 Pure hypercholesterolemia, unspecified; G89.29 Other chronic pain; F41.9 Anxiety disorder, unspecified; Z86.73 Personal history of transient ischemic attack (TIA), and cerebral infarction without residual deficits; Z85.9 Personal history of malignant neoplasm, unspecified; Z95.0 Presence of cardiac pacemaker; Z79.82 Long term (current) use of aspirin; Z79.899 Other long term (current) drug therapy
CPT/HCPCS: 99283

== ENCOUNTER 2021-06-25 05:34 | Emergency (ER) | payer OTHER, MEDICARE ==
[~2021-06-25] VITALS: Ht 167.6 cm; Wt 95.5 kg
[2021-06-25] MEDS ORDERED: LORazepam 1 MG tablet PO ONE ×2 (05:40→05:45)
[2021-06-25] MEDS ORDERED: LORA-269 PO (05:44)
[2021-06-25] MEDS ORDERED: chlordiazePOXIDE 25mg capsule PO ONE (05:45)
[2021-06-25 06:35] VITALS: BP 176/84
== END 2021-06-25 06:38 | disposition home or self-care (01) ==
LOC: ER 05:34
DX: F41.9 Anxiety disorder, unspecified (principal); F13.20 Sedative, hypnotic or anxiolytic dependence, uncomplicated; I11.0 Hypertensive heart disease with heart failure; I50.9 Heart failure, unspecified; E78.00 Pure hypercholesterolemia, unspecified; G89.29 Other chronic pain; Z76.0 Encounter for issue of repeat prescription; Z86.73 Personal history of transient ischemic attack (TIA), and cerebral infarction without residual deficits; Z95.0 Presence of cardiac pacemaker; Z85.9 Personal history of malignant neoplasm, unspecified; Z79.82 Long term (current) use of aspirin; Z79.899 Other long term (current) drug therapy
CPT/HCPCS: 93005; 99283

== ENCOUNTER 2021-08-05 15:15 | Emergency (ER) | payer OTHER, MEDICARE | END 2021-08-05 16:03 | disposition left against medical advice (07) | LOC: ER 15:15 | DX: R07.89 Other chest pain (principal); Z53.21 Procedure and treatment not carried out due to patient leaving prior to being seen by health care provider ==

== ENCOUNTER 2021-09-14 18:56 | Emergency (ER) | payer OTHER, MEDICARE ==
[~2021-09-14] VITALS: Ht 170.2 cm; Wt 95.0 kg
[2021-09-14] MEDS ORDERED: METO-411 PO (19:22)
[2021-09-14] MEDS ORDERED: PANT40TA54 PO (19:27)
[2021-09-14] MEDS ORDERED: APR20I PO (19:27)
[2021-09-14] MEDS ORDERED: ALB0.5UD IH (19:27)
[2021-09-14 19:48] LABS: BASOPHILS # (AUTO) 0.1 X10'3 (0-0.2); BASOPHILS % (AUTO) 0.6 % (0-1); EOSINOPHILS # (AUTO) 0.2 X10'3 (0-0.9); EOSINOPHILS % (AUTO) 2.2 % (0-6); HEMATOCRIT 35.3 % (42.0-52.0); HEMOGLOBIN 11.2 g/dl (14.0-17.9); LYMPHOCYTES # (AUTO) 0.8 X10'3 (1.1-4.8); LYMPHOCYTES % (AUTO) 7.8 % (21-51); MEAN CORPUSCULAR HEMOGLOBIN 24.6 PG (27.0-31.0); MEAN CORPUSCULAR HGB CONC 31.6 g/dL (33.0-36.5); MEAN CORPUSCULAR VOLUME 77.7 FL (78-98); MEAN PLATELET VOLUME 7.1 FL (7.4-10.4); MONOCYTES # (AUTO) 0.7 X10'3 (0-0.9); MONOCYTES % (AUTO) 7.7 % (2-12); NEUTROPHILS # (AUTO) 7.9 X10'3 (1.8-7.7); NEUTROPHILS % (AUTO) 81.7 % (42-75); PLATELET COUNT 319 X10'3 (140-440); RED BLOOD COUNT 4.55 X10'6 (4.70-6.10); RED CELL DISTRIBUTION WIDTH 16.4 % (11.5-14.5); WHITE BLOOD COUNT 9.7 X10'3 (4.5-11.0)
[2021-09-14 20:06] LABS: ALANINE AMINOTRANSFERASE 13 U/L (12-78); ALBUMIN 3.2 G/DL (3.4-5.0); ALBUMIN/GLOBULIN RATIO 0.8 (1.1-1.5); ALKALINE PHOSPHATASE 95 IU/L (46-116); ANION GAP 8 (8-16); ASPARTATE AMINO TRANSFERASE 10 U/L (10-37); BILIRUBIN,TOTAL 0.4 MG/DL (0.1-1.0); BLOOD UREA NITROGEN 19 MG/DL (7-18); BUN/CREATININE RATIO 13.2 (5.4-32.0); CALCIUM 8.4 MG/DL (8.5-10.1); CHLORIDE 104 MMOL/L (99-107); CREATININE 1.44 MG/DL (0.60-1.10); GLUCOSE 109 MG/DL (70-104); POTASSIUM 4.4 MMOL/L (3.5-5.1); SODIUM 142 MMOL/L (135-145); TOTAL CARBON DIOXIDE 30.3 MMOL/L (24-32); TOTAL PROTEIN 7.1 G/DL (6.4-8.2); eGFR 47 ML/MIN
[2021-09-14] MEDS ORDERED: normal saline 1000ML IV soln IVB ONE (20:25)
[2021-09-14 21:45] LABS: CLARITY,URINE CLEAR (Clear); COLOR,URINE YELLOW (Yellow); GLUCOSE, URINE NEGATIVE (Neg); KETONES,URINE NEGATIVE (Neg); LEUKOCYTE ESTERASE ,URINE NEGATIVE (Neg); NITRITES, URINE NEGATIVE (Neg); OCCULT BLOOD,URINE NEGATIVE (Neg); PROTEIN,URINE TRACE mg/dl (Neg); UA COLLECTION TYPE NON-SPECIFIED; UROBILINOGEN,URINE 0.2 E.U/dL (0.2-1.0)
[2021-09-14 21:49] VITALS: BP 160/71
[2021-09-14 21:51] LABS: BACTERIA,URINE NONE SEEN /HPF (Neg); HYALINE CASTS 0-3 /LPF (NEGATIVE); MUCUS STRANDS FEW /LPF (Neg); RBC,URINE 0-2 /HPF (0-2); SQUAMOUS EPITHELIAL CELL,UR FEW /LPF (FEW); WBC,URINE 0-4 /HPF (0-4)
== END 2021-09-14 21:52 | disposition home or self-care (01) ==
LOC: ER 18:57
DX: T67.5XXA Heat exhaustion, unspecified, initial encounter (principal); R06.02 Shortness of breath; M79.602 Pain in left arm; R61 Generalized hyperhidrosis; E78.00 Pure hypercholesterolemia, unspecified; I10 Essential (primary) hypertension; G89.29 Other chronic pain; Z85.9 Personal history of malignant neoplasm, unspecified; Z79.82 Long term (current) use of aspirin; Z79.899 Other long term (current) drug therapy; Z95.0 Presence of cardiac pacemaker; X58.XXXA Exposure to other specified factors, initial encounter; Y93.89 Activity, other specified; Y92.89 Other specified places as the place of occurrence of the external cause; Y99.8 Other external cause status
CPT/HCPCS: 36415; 71045; 80053; 81001; 83880; 84484; 85025; 93005; 96360; 99285; J7030

== ENCOUNTER 2022-01-13 06:50 | Emergency (ER) | payer OTHER, MEDICARE ==
[~2022-01-13] VITALS: Ht 165.1 cm; Wt 94.5 kg
[~2022-01-13 06:50] MED LIST changes: +ALB0.5UD IH; +APR20I PO; -BISA-155 PO; -METO-384 PO; +METO-411 PO; -ONDA4TAB12 PO; +PANT40TA54 PO; -ROSU40TA PO; -SUCR1TAB34 PO
[2022-01-13 07:11] VITALS: BP 174/81
[2022-01-13] MEDS ORDERED: LORazepam 1 MG tablet PO ONE (09:20)
== END 2022-01-14 06:42 | disposition home or self-care (01) ==
LOC: ER 06:50
DX: F41.9 Anxiety disorder, unspecified (principal); I11.0 Hypertensive heart disease with heart failure; G89.29 Other chronic pain; Z79.899 Other long term (current) drug therapy; Z79.82 Long term (current) use of aspirin
CPT/HCPCS: 99283

== ENCOUNTER 2022-03-30 06:59 | Emergency (ER) | payer OTHER, MEDICARE ==
[~2022-03-30] VITALS: Ht 165.1 cm; Wt 95.5 kg
[2022-03-30 06:59] VITALS: BP_DIAS 79
[2022-03-30] MEDS ORDERED: aspirin 81mg tab.chew PO ONE (07:05)
[2022-03-30] MEDS ORDERED: losartan 50mg tablet PO ONE (07:20)
[2022-03-30] MEDS ORDERED: LORazepam 1 MG tablet PO ONE (07:20)
[2022-03-30 07:45] VITALS: BP_SYST 166
[2022-03-30 08:20] LABS: ALANINE AMINOTRANSFERASE 13 U/L (12-78); ALBUMIN 3.4 G/DL (3.4-5.0); ALBUMIN/GLOBULIN RATIO 0.9 (1.1-1.5); ALKALINE PHOSPHATASE 97 IU/L (46-116); ANION GAP 5 (8-16); ASPARTATE AMINO TRANSFERASE 16 U/L (10-37); BILIRUBIN,TOTAL 0.3 MG/DL (0.1-1.0); BLOOD UREA NITROGEN 24 MG/DL (7-18); BUN/CREATININE RATIO 19.2 (5.4-32.0); CALCIUM 8.8 MG/DL (8.5-10.1); CHLORIDE 100 MMOL/L (99-107); CREATININE 1.25 MG/DL (0.60-1.10); GLUCOSE 115 MG/DL (70-104); POTASSIUM 4.3 MMOL/L (3.5-5.1); SODIUM 135 MMOL/L (135-145); TOTAL CARBON DIOXIDE 30.3 MMOL/L (24-32); TOTAL PROTEIN 7.2 G/DL (6.4-8.2); eGFR 56 ML/MIN
[2022-03-30 08:24] LABS: BASOPHILS # (AUTO) 0.1 X10'3 (0-0.2); BASOPHILS % (AUTO) 0.9 % (0-1); EOSINOPHILS # (AUTO) 0.2 X10'3 (0-0.9); EOSINOPHILS % (AUTO) 2.6 % (0-6); HEMATOCRIT 36.3 % (42.0-52.0); HEMOGLOBIN 11.4 g/dl (14.0-17.9); LYMPHOCYTES # (AUTO) 0.7 X10'3 (1.1-4.8); LYMPHOCYTES % (AUTO) 12.2 % (21-51); MEAN CORPUSCULAR HGB CONC 31.5 g/dL (33.0-36.5); MEAN CORPUSCULAR VOLUME 79.2 FL (78-98); MEAN PLATELET VOLUME 8.1 FL (7.4-10.4); MONOCYTES # (AUTO) 0.5 X10'3 (0-0.9); NEUTROPHILS # (AUTO) 4.6 X10'3 (1.8-7.7); NEUTROPHILS % (AUTO) 76.3 % (42-75); PLATELET COUNT 320 X10'3 (140-440); RED BLOOD COUNT 4.58 X10'6 (4.70-6.10); RED CELL DISTRIBUTION WIDTH 16.1 % (11.5-14.5)
[2022-03-30] MEDS ORDERED: LORA-269 PO ×2 (10:24→10:26)
[2022-03-30] MEDS ORDERED: LOSA50TA3 PO (10:24)
== END 2022-03-30 11:25 | disposition home or self-care (01) ==
LOC: ER 06:59
DX: R07.9 Chest pain, unspecified (principal); F41.9 Anxiety disorder, unspecified; I11.0 Hypertensive heart disease with heart failure; E78.00 Pure hypercholesterolemia, unspecified; G89.29 Other chronic pain; I10 Essential (primary) hypertension; Z79.899 Other long term (current) drug therapy; Z79.1 Long term (current) use of non-steroidal anti-inflammatories (NSAID); Z79.82 Long term (current) use of aspirin
CPT/HCPCS: 36415; 71045; 80053; 83735; 83880; 84484; 85025; 93005; 99285

== ENCOUNTER 2022-04-10 20:46 | Emergency (ER) | payer OTHER, MEDICARE ==
[~2022-04-10] VITALS: Ht 165.1 cm; Wt 100.0 kg
[2022-04-10 21:07] VITALS: BP 181/63
[2022-04-10] MEDS ORDERED: oxyCODONE/APAP 10/325mg tablet PO ONE (21:15)
[2022-04-10] MEDS ORDERED: orphenadrine citrate 60mg/2ml inj. IM ONE (23:15)
[2022-04-10] MEDS ORDERED: diazepam 5mg tablet PO ONE (23:15)
--- NOTE | 2022-04-10 23:27 | NUR ---
went to [place] with Cullet Washer
[2022-04-10] MEDS ORDERED: OXYC-150 PO (23:59)
== END 2022-04-11 00:46 | disposition home or self-care (01) ==
LOC: ER 20:47
DX: S72.092A Other fracture of head and neck of left femur, initial encounter for closed fracture (principal); I11.9 Hypertensive heart disease without heart failure; E78.00 Pure hypercholesterolemia, unspecified; G89.29 Other chronic pain; F41.9 Anxiety disorder, unspecified; Z79.899 Other long term (current) drug therapy; Z79.1 Long term (current) use of non-steroidal anti-inflammatories (NSAID); Z79.82 Long term (current) use of aspirin; W18.39XA Other fall on same level, initial encounter; Y93.89 Activity, other specified; Y92.89 Other specified places as the place of occurrence of the external cause; Y99.8 Other external cause status
CPT/HCPCS: 72100; 72131; 73502; 96372; 99285; J2360

== ENCOUNTER 2022-04-12 23:44 | Emergency (ER) | payer OTHER, MEDICARE ==
[~2022-04-12] VITALS: Ht 167.6 cm; Wt 100.0 kg
[~2022-04-12 23:44] MED LIST changes: +OXYC-150 PO
[2022-04-13] MEDS ORDERED: oxyCODONE/APAP 10/325mg tablet PO ONE (00:40)
[2022-04-13] MEDS ORDERED: diazepam 5mg tablet PO ONE (00:40)
[2022-04-13] MEDS ORDERED: orphenadrine citrate 60mg/2ml inj. IM ONE (00:40)
[2022-04-13] MEDS ORDERED: ketorolac trometh inj. 60 MG/2 ML VIAL IM ONE (00:45)
[2022-04-13] MEDS ORDERED: OXYC-138 PO ×3 (00:48→01:37)
[2022-04-13] MEDS ORDERED: NALO4SPR BOTHNARES (00:55)
[2022-04-13 01:43] VITALS: BP 168/72
== END 2022-04-13 02:13 | disposition home or self-care (01) ==
LOC: ER 23:45
DX: M54.59 Other low back pain (principal); I11.9 Hypertensive heart disease without heart failure; E78.00 Pure hypercholesterolemia, unspecified; G89.29 Other chronic pain; F41.9 Anxiety disorder, unspecified; I10 Essential (primary) hypertension; Z79.899 Other long term (current) drug therapy; Z79.1 Long term (current) use of non-steroidal anti-inflammatories (NSAID); Z79.2 Long term (current) use of antibiotics
CPT/HCPCS: 96372; 99284; J1885; J2360

== ENCOUNTER 2023-11-09 20:13 | Inpatient (IN) | payer OTHER, MEDICARE ==
[~2023-11-09] VITALS: Ht 167.6 cm; Wt 90.0 kg
[~2023-11-09 20:13] MED LIST changes: -APR20I PO; -ASPI81TA52 PO; +EMPA25TA PO; +FLO0.4C PO; +HYDR-3686 PO; +LORA-268 PO; -LORA-269 PO; -LOSA50TA3 PO; +NALO4SPR BOTHNARES; -OXYC-150 PO; -POTA-82 PO; +ROSU40TA71 PO; +SACU1TAB PO; +SERT200C PO; +SPIR25TA5 PO
[2023-11-09] MEDS: ondansetron/PF 4mg/2ml inj IV ONE (21:00)
[2023-11-09] MEDS: HYDROmorphone 1 mg/ml syringe IV ONE ×2 (21:03→22:09)
[2023-11-09] MEDS ORDERED: magnesium sulf-water 4G/100mL 100 ML IV PRN (23:55)
[2023-11-09] MEDS ORDERED: acetaminophen 325mg tablet PO PRN (23:55)
[2023-11-09] MEDS ORDERED: magnesium sulf-water 2g/50mL 50 ML IV PRN (23:55)
[2023-11-09] MEDS ORDERED: magnesium hydroxide 30ml (MOM) UD suspension PO PRN (23:55)
[2023-11-09] MEDS ORDERED: mag hydrox/Alum hydrox/simeth 30ml oral suspension PO PRN (23:55)
[2023-11-09] MEDS ORDERED: potassium Cl 40MEQ/1/2NS 520ml 520 ML IV PRN (23:55)
[2023-11-09] MEDS ORDERED: magnesium Cl slow-release 64mg tablet PO PRN (23:55)
[2023-11-09] MEDS ORDERED: ondansetron/PF 4mg/2ml inj IV PRN (23:55)
[2023-11-09] MEDS ORDERED: potassium Cl 20 mEq SR tablet PO PRN ×2 (23:55)
[2023-11-10] VITALS (8 sets, daily range): BP systolic 115–149; BP diastolic 45–64; PULSE 60–70; RESP 16–20; TEMP 97.3–98.7; O2SAT 94–100
[2023-11-10] MEDS: normal saline 1000ml 1,000 ML IV SCH (00:14)
[2023-11-10] MEDS: PERFLUTREN PROTEIN-A MICROSPHR (Optison) 0.22 MG/ML 3ML VIAL IV ONE (00:14)
[2023-11-10] MEDS ORDERED: hydrALAZINE 20mg/ml inj. IV PRN (00:35)
[2023-11-10] MEDS: morphine 2 MG/ML inj. syringe IV PRN (01:26)
[2023-11-10] MEDS: hydrALAZINE 20mg/ml inj. IV ONE (01:50)
[2023-11-10] MEDS: LORazepam 0.5 MG tablet PO PRN (04:29)
[2023-11-10 04:49] LABS: BASOPHILS % (AUTO) 0.5 % (0-1); EOSINOPHILS # (AUTO) 0.1 X10'3 (0-0.9); EOSINOPHILS % (AUTO) 1.7 % (0-6); HEMATOCRIT 32.1 % (42.0-52.0); HEMOGLOBIN 9.9 g/dl (14.0-17.9); LYMPHOCYTES # (AUTO) 0.5 X10'3 (1.1-4.8); LYMPHOCYTES % (AUTO) 9.1 % (21-51); MEAN CORPUSCULAR HEMOGLOBIN 26.7 PG (27.0-31.0); MEAN CORPUSCULAR HGB CONC 30.8 g/dL (33.0-36.5); MEAN CORPUSCULAR VOLUME 86.5 FL (78-98); MEAN PLATELET VOLUME 7.6 FL (7.4-10.4); MONOCYTES # (AUTO) 0.4 X10'3 (0-0.9); MONOCYTES % (AUTO) 7.2 % (2-12); NEUTROPHILS # (AUTO) 4.9 X10'3 (1.8-7.7); NEUTROPHILS % (AUTO) 81.5 % (42-75); PLATELET COUNT 225 X10'3 (140-440); RED BLOOD COUNT 3.71 X10'6 (4.70-6.10); RED CELL DISTRIBUTION WIDTH 15.7 % (11.5-14.5)
[2023-11-10 05:02] LABS: ALANINE AMINOTRANSFERASE 14 U/L (12-78); ALBUMIN 2.8 G/DL (3.4-5.0); ALBUMIN/GLOBULIN RATIO 0.8 (1.1-1.5); ALKALINE PHOSPHATASE 87 IU/L (46-116); ANION GAP 4 (8-16); ASPARTATE AMINO TRANSFERASE 15 U/L (10-37); BILIRUBIN,TOTAL 0.2 MG/DL (0.1-1.0); BLOOD UREA NITROGEN 17 MG/DL (7-18); BUN/CREATININE RATIO 15.7 (10.0-20.0); CALCIUM 7.9 MG/DL (8.5-10.1); CHLORIDE 107 MMOL/L (99-107); CREATININE 1.08 MG/DL (0.60-1.10); GLUCOSE 100 MG/DL (70-104); MAGNESIUM 1.9 MG/DL (1.5-2.4); POTASSIUM 3.9 MMOL/L (3.5-5.1); SODIUM 144 MMOL/L (135-145); TOTAL CARBON DIOXIDE 33.5 MMOL/L (24-32); TOTAL PROTEIN 6.3 G/DL (6.4-8.2); eCRCL 48 ML/MIN; eGFR 65 ML/MIN
[2023-11-10] MEDS: HYDROmorphone inj. 0.5 MG/0.5 ML DISP.SYRIN IV PRN (05:16)
[2023-11-10] MEDS: levoTHYROXINE 125mcg tablet PO SCH (07:00)
[2023-11-10] MEDS: pantoprazole 40mg Tablet.DR PO SCH (07:30)
[2023-11-10] MEDS: EMPAGLIFLOZIN 25 MG TABLET PO SCH (08:00)
[2023-11-10] MEDS: atorvastatin 20mg tablet PO SCH (08:00)
[2023-11-10] MEDS: K and/or MAG REPLACEMENT MC SCH (08:00)
[2023-11-10] MEDS: docusate sod 100mg capsule PO SCH (08:00)
[2023-11-10] MEDS: sacubitril/valsartan 24mg-26mg tablet PO SCH (08:00)
[2023-11-10] MEDS: HYDROcodone/acetaminophen 5mg/325mg tablet PO PRN (08:43)
[2023-11-10] MEDS: metoprolol succinate 25mg (24-HOUR) SR. Tablet PO SCH (09:38)
[2023-11-10] MEDS: tamsulosin 0.4mg capsule PO SCH (09:38)
[2023-11-10] MEDS: sertraline 50mg tablet PO SCH (09:39)
[2023-11-10] MEDS: spironolactone 25 MG tablet PO SCH (09:40)
[2023-11-10] MEDS: furosemide 40mg tablet PO SCH (09:45)
[2023-11-10] MEDS: LORazepam 1 MG tablet PO PRN (16:01)
[2023-11-11] VITALS (7 sets, daily range): BP systolic 114–121; BP diastolic 47–55; PULSE 59–75; RESP 15–18; TEMP 97.2–98.3; O2SAT 96–99
[2023-11-11] MEDS: FLU VACC TS2024-25(6MOS UP)/PF 45 MCG/0.5 ML SYRINGE IMVAC ONE (01:58)
[2023-11-11] MEDS: pneumococcal 23-VAL P-sac vacc 25 mcg/0.5ml vial IMVAC ONE (02:04)
[2023-11-11 04:19] LABS: BASOPHILS % (AUTO) 0.3 % (0-1); EOSINOPHILS # (AUTO) 0.1 X10'3 (0-0.9); HEMOGLOBIN 8.8 g/dl (14.0-17.9); LYMPHOCYTES # (AUTO) 0.5 X10'3 (1.1-4.8); LYMPHOCYTES % (AUTO) 9.6 % (21-51); MEAN CORPUSCULAR HEMOGLOBIN 26.5 PG (27.0-31.0); MEAN CORPUSCULAR HGB CONC 30.4 g/dL (33.0-36.5); MEAN PLATELET VOLUME 7.9 FL (7.4-10.4); MONOCYTES # (AUTO) 0.5 X10'3 (0-0.9); MONOCYTES % (AUTO) 9.9 % (2-12); NEUTROPHILS # (AUTO) 4.3 X10'3 (1.8-7.7); NEUTROPHILS % (AUTO) 78.2 % (42-75); PLATELET COUNT 189 X10'3 (140-440); RED BLOOD COUNT 3.33 X10'6 (4.70-6.10); RED CELL DISTRIBUTION WIDTH 15.8 % (11.5-14.5); WHITE BLOOD COUNT 5.5 X10'3 (4.5-11.0)
[2023-11-11 04:36] LABS: ALANINE AMINOTRANSFERASE 11 U/L (12-78); ALBUMIN 2.4 G/DL (3.4-5.0); ALBUMIN/GLOBULIN RATIO 0.7 (1.1-1.5); ALKALINE PHOSPHATASE 80 IU/L (46-116); ANION GAP 4 (8-16); ASPARTATE AMINO TRANSFERASE 12 U/L (10-37); BILIRUBIN,TOTAL 0.2 MG/DL (0.1-1.0); BLOOD UREA NITROGEN 23 MG/DL (7-18); BUN/CREATININE RATIO 20.4 (10.0-20.0); CALCIUM 8.1 MG/DL (8.5-10.1); CHLORIDE 106 MMOL/L (99-107); CREATININE 1.13 MG/DL (0.60-1.10); GLUCOSE 107 MG/DL (70-104); MAGNESIUM 2.2 MG/DL (1.5-2.4); POTASSIUM 3.8 MMOL/L (3.5-5.1); SODIUM 142 MMOL/L (135-145); TOTAL CARBON DIOXIDE 31.6 MMOL/L (24-32); TOTAL PROTEIN 5.7 G/DL (6.4-8.2); eCRCL 45 ML/MIN; eGFR 62 ML/MIN
[2023-11-11 09:25] LABS: HBSAG SCREEN Negative (Negative); HEP B CORE AB, IGM Negative (Negative); HEP B CORE AB, TOT Negative (Negative); HEP B SURF AB Non Reactive (.)
[2023-11-11] MEDS ORDERED: pneumococcal 23-VAL P-sac vacc 25 mcg/0.5ml vial IMVAC ONE (10:00)
[2023-11-11] MEDS ORDERED: FLU VACC TS2024-25(6MOS UP)/PF 45 MCG/0.5 ML SYRINGE IMVAC ONE (10:00)
[2023-11-12] VITALS (7 sets, daily range): BP systolic 116–133; BP diastolic 37–56; PULSE 59–60; RESP 16–20; TEMP 97.9–98; O2SAT 95–100
[2023-11-12 04:50] LABS: ALANINE AMINOTRANSFERASE 12 U/L (12-78); ALBUMIN 2.4 G/DL (3.4-5.0); ALBUMIN/GLOBULIN RATIO 0.7 (1.1-1.5); ALKALINE PHOSPHATASE 79 IU/L (46-116); ANION GAP 3 (8-16); ASPARTATE AMINO TRANSFERASE 13 U/L (10-37); BILIRUBIN,TOTAL 0.2 MG/DL (0.1-1.0); BLOOD UREA NITROGEN 24 MG/DL (7-18); CALCIUM 7.8 MG/DL (8.5-10.1); CHLORIDE 104 MMOL/L (99-107); CREATININE 1.33 MG/DL (0.60-1.10); GLUCOSE 101 MG/DL (70-104); MAGNESIUM 2.2 MG/DL (1.5-2.4); POTASSIUM 3.7 MMOL/L (3.5-5.1); SODIUM 140 MMOL/L (135-145); TOTAL CARBON DIOXIDE 32.6 MMOL/L (24-32); eCRCL 39 ML/MIN; eGFR 51 ML/MIN
[2023-11-12 04:53] LABS: % IRON SATURATION 9 % (11-46); IRON 27 UG/DL (53-167); TOTAL IRON BINDING CAPACITY 297 UG/DL (259-388)
[2023-11-12 06:55] LABS: BASOPHILS % (AUTO) 0.4 % (0-1); EOSINOPHILS # (AUTO) 0.2 X10'3 (0-0.9); EOSINOPHILS % (AUTO) 4.1 % (0-6); HEMATOCRIT 26.2 % (42.0-52.0); HEMOGLOBIN 8.2 g/dl (14.0-17.9); LYMPHOCYTES # (AUTO) 0.5 X10'3 (1.1-4.8); MEAN CORPUSCULAR HEMOGLOBIN 27.2 PG (27.0-31.0); MEAN CORPUSCULAR HGB CONC 31.3 g/dL (33.0-36.5); MEAN CORPUSCULAR VOLUME 86.9 FL (78-98); MEAN PLATELET VOLUME 8.2 FL (7.4-10.4); MONOCYTES # (AUTO) 0.5 X10'3 (0-0.9); MONOCYTES % (AUTO) 9.4 % (2-12); NEUTROPHILS # (AUTO) 4.1 X10'3 (1.8-7.7); NEUTROPHILS % (AUTO) 77.1 % (42-75); PLATELET COUNT 185 X10'3 (140-440); RED BLOOD COUNT 3.01 X10'6 (4.70-6.10); RED CELL DISTRIBUTION WIDTH 15.4 % (11.5-14.5); WHITE BLOOD COUNT 5.3 X10'3 (4.5-11.0)
[2023-11-12] MEDS: pantoprazole 40 MG vial IV SCH (08:00)
[2023-11-12] MEDS: FLU VACC TS2024-25(6MOS UP)/PF 45 MCG/0.5 ML SYRINGE IMVAC ONE (10:44)
[2023-11-12] MEDS: pneumococcal 23-VAL P-sac vacc 25 mcg/0.5ml vial IMVAC ONE (10:47)
[2023-11-13 06:00] VITALS: BP 110/53; PULSE 60; RESP 16; TEMP 97.8; O2SAT 96
[2023-11-13 06:34] LABS: BASOPHILS % (AUTO) 0.3 % (0-1); EOSINOPHILS # (AUTO) 0.2 X10'3 (0-0.9); EOSINOPHILS % (AUTO) 3.8 % (0-6); HEMATOCRIT 29.8 % (42.0-52.0); HEMOGLOBIN 9.3 g/dl (14.0-17.9); LYMPHOCYTES # (AUTO) 0.6 X10'3 (1.1-4.8); LYMPHOCYTES % (AUTO) 10.4 % (21-51); MEAN CORPUSCULAR HEMOGLOBIN 26.9 PG (27.0-31.0); MEAN CORPUSCULAR HGB CONC 31.3 g/dL (33.0-36.5); MEAN PLATELET VOLUME 8.1 FL (7.4-10.4); MONOCYTES # (AUTO) 0.5 X10'3 (0-0.9); MONOCYTES % (AUTO) 8.7 % (2-12); NEUTROPHILS # (AUTO) 4.2 X10'3 (1.8-7.7); NEUTROPHILS % (AUTO) 76.8 % (42-75); PLATELET COUNT 215 X10'3 (140-440); RED BLOOD COUNT 3.47 X10'6 (4.70-6.10); RED CELL DISTRIBUTION WIDTH 15.6 % (11.5-14.5); WHITE BLOOD COUNT 5.5 X10'3 (4.5-11.0)
[2023-11-13 06:47] LABS: ALANINE AMINOTRANSFERASE 17 U/L (12-78); ALBUMIN 2.6 G/DL (3.4-5.0); ALBUMIN/GLOBULIN RATIO 0.7 (1.1-1.5); ALKALINE PHOSPHATASE 83 IU/L (46-116); ANION GAP 2 (8-16); ASPARTATE AMINO TRANSFERASE 15 U/L (10-37); BILIRUBIN,TOTAL 0.3 MG/DL (0.1-1.0); BLOOD UREA NITROGEN 23 MG/DL (7-18); CHLORIDE 101 MMOL/L (99-107); CREATININE 1.15 MG/DL (0.60-1.10); GLUCOSE 102 MG/DL (70-104); MAGNESIUM 2.1 MG/DL (1.5-2.4); POTASSIUM 3.6 MMOL/L (3.5-5.1); SODIUM 138 MMOL/L (135-145); TOTAL CARBON DIOXIDE 34.6 MMOL/L (24-32); TOTAL PROTEIN 6.5 G/DL (6.4-8.2); eCRCL 45 ML/MIN; eGFR 61 ML/MIN
[2023-11-13 08:00] VITALS: RESP 16; O2SAT 96
[2023-11-13 08:16] VITALS: PULSE 62; RESP 16; O2SAT 96
[2023-11-13 10:00] VITALS: BP 121/48; PULSE 60; RESP 16; TEMP 98; O2SAT 98
[2023-11-13 20:00] VITALS: RESP 16; O2SAT 95
[2023-11-13 22:00] VITALS: BP 115/43; PULSE 60; RESP 16; TEMP 97.8; O2SAT 97
[2023-11-14 07:02] LABS: BASOPHILS % (AUTO) 0.5 % (0-1); EOSINOPHILS # (AUTO) 0.2 X10'3 (0-0.9); EOSINOPHILS % (AUTO) 4.6 % (0-6); HEMATOCRIT 26.3 % (42.0-52.0); HEMOGLOBIN 8.3 g/dl (14.0-17.9); LYMPHOCYTES # (AUTO) 0.6 X10'3 (1.1-4.8); LYMPHOCYTES % (AUTO) 12.5 % (21-51); MEAN CORPUSCULAR HEMOGLOBIN 27.2 PG (27.0-31.0); MEAN CORPUSCULAR HGB CONC 31.6 g/dL (33.0-36.5); MEAN CORPUSCULAR VOLUME 86.1 FL (78-98); MEAN PLATELET VOLUME 8.2 FL (7.4-10.4); MONOCYTES # (AUTO) 0.5 X10'3 (0-0.9); MONOCYTES % (AUTO) 9.4 % (2-12); NEUTROPHILS # (AUTO) 3.5 X10'3 (1.8-7.7); PLATELET COUNT 201 X10'3 (140-440); RED BLOOD COUNT 3.05 X10'6 (4.70-6.10); RED CELL DISTRIBUTION WIDTH 15.6 % (11.5-14.5); WHITE BLOOD COUNT 4.8 X10'3 (4.5-11.0)
[2023-11-14 07:27] LABS: ALANINE AMINOTRANSFERASE 14 U/L (12-78); ALBUMIN 2.4 G/DL (3.4-5.0); ALBUMIN/GLOBULIN RATIO 0.6 (1.1-1.5); ALKALINE PHOSPHATASE 80 IU/L (46-116); ANION GAP 4 (8-16); ASPARTATE AMINO TRANSFERASE 16 U/L (10-37); BILIRUBIN,TOTAL 0.3 MG/DL (0.1-1.0); BLOOD UREA NITROGEN 25 MG/DL (7-18); BUN/CREATININE RATIO 23.4 (10.0-20.0); CALCIUM 8.1 MG/DL (8.5-10.1); CHLORIDE 100 MMOL/L (99-107); CREATININE 1.07 MG/DL (0.60-1.10); GLUCOSE 94 MG/DL (70-104); POTASSIUM 3.8 MMOL/L (3.5-5.1); SODIUM 139 MMOL/L (135-145); TOTAL PROTEIN 6.3 G/DL (6.4-8.2); eCRCL 48 ML/MIN; eGFR 66 ML/MIN
[2023-11-14 08:00] VITALS: RESP 16
[2023-11-14] MEDS: pantoprazole 40mg Tablet.DR PO SCH (08:20)
[2023-11-14 08:42] VITALS: BP 110/53; PULSE 60; RESP 16; TEMP 97.8; O2SAT 96
[2023-11-14 16:25] VITALS: PULSE 59; RESP 16; O2SAT 97
[2023-11-14 18:00] VITALS: BP 99/57; PULSE 59; RESP 20; TEMP 98.2; O2SAT 93
[2023-11-14 20:56] VITALS: PULSE 62; RESP 16; O2SAT 98
[2023-11-14 21:40] VITALS: BP 123/41; PULSE 57; RESP 18; TEMP 97.1; O2SAT 99
[2023-11-14] MEDS: clopidogrel 75mg tablet PO SCH (21:47)
[2023-11-15 06:00] VITALS: BP 142/47; PULSE 55; RESP 16; TEMP 98; O2SAT 99
[2023-11-15 08:00] VITALS: RESP 16
[2023-11-15 08:33] VITALS: PULSE 60; RESP 16; O2SAT 98
[2023-11-15 09:19] LABS: BASOPHILS % (AUTO) 0.5 % (0-1); EOSINOPHILS # (AUTO) 0.2 X10'3 (0-0.9); EOSINOPHILS % (AUTO) 4.6 % (0-6); HEMATOCRIT 29.4 % (42.0-52.0); HEMOGLOBIN 9.3 g/dl (14.0-17.9); LYMPHOCYTES # (AUTO) 0.6 X10'3 (1.1-4.8); LYMPHOCYTES % (AUTO) 12.5 % (21-51); MEAN CORPUSCULAR HEMOGLOBIN 27.2 PG (27.0-31.0); MEAN CORPUSCULAR HGB CONC 31.5 g/dL (33.0-36.5); MEAN CORPUSCULAR VOLUME 86.2 FL (78-98); MONOCYTES # (AUTO) 0.4 X10'3 (0-0.9); MONOCYTES % (AUTO) 8.3 % (2-12); NEUTROPHILS # (AUTO) 3.5 X10'3 (1.8-7.7); NEUTROPHILS % (AUTO) 74.1 % (42-75); PLATELET COUNT 245 X10'3 (140-440); RED BLOOD COUNT 3.41 X10'6 (4.70-6.10); RED CELL DISTRIBUTION WIDTH 15.4 % (11.5-14.5); WHITE BLOOD COUNT 4.7 X10'3 (4.5-11.0)
[2023-11-15 09:31] LABS: ALBUMIN 2.5 G/DL (3.4-5.0); ANION GAP 2 (8-16); BLOOD UREA NITROGEN 20 MG/DL (7-18); BUN/CREATININE RATIO 19.2 (10.0-20.0); CALCIUM 8.2 MG/DL (8.5-10.1); CHLORIDE 99 MMOL/L (99-107); CREATININE 1.04 MG/DL (0.60-1.10); GLUCOSE 111 MG/DL (70-104); POTASSIUM 3.5 MMOL/L (3.5-5.1); SODIUM 137 MMOL/L (135-145); TOTAL CARBON DIOXIDE 36.3 MMOL/L (24-32); eCRCL 49 ML/MIN; eGFR 68 ML/MIN
[2023-11-15 18:00] VITALS: BP 130/46; PULSE 60; RESP 16; TEMP 97.4; O2SAT 97
[2023-11-15 20:00] VITALS: RESP 16; O2SAT 97
[2023-11-15 20:50] VITALS: PULSE 63; RESP 16; O2SAT 97
[2023-11-16] VITALS (8 sets, daily range): BP systolic 108–131; BP diastolic 34–63; PULSE 60–61; RESP 14–20; TEMP 97.1–97.8; O2SAT 96–99
[2023-11-16] MEDS: furosemide 20MG tablet PO SCH (07:24)
[2023-11-16] MEDS: LORazepam 1 MG tablet PO ONE (20:32)
[2023-11-17 06:00] VITALS: BP 126/51; PULSE 60; RESP 18; TEMP 97.5; O2SAT 98
[2023-11-17 08:00] VITALS: RESP 16; O2SAT 98
[2023-11-17 08:06] VITALS: BP_SYST 126
[2023-11-17] MEDS: albuterol 2.5 MG/3 ML nebule NEB PRN (09:16)
[2023-11-17 09:18] VITALS: PULSE 60; RESP 20; O2SAT 99
[2023-11-17 09:23] VITALS: PULSE 56; RESP 20
== END 2023-11-17 14:53 | disposition home or self-care (01) | DRG 543 ==
LOC: ER 20:13 → ED HOLD 11-10 00:06 → SUR 3N 11-10 02:49
PROVIDERS: ADMIT Surgery; ATTEND Family Medicine
DX: M80.021A Age-related osteoporosis with current pathological fracture, right humerus, initial encounter for fracture (principal); E87.1 Hypo-osmolality and hyponatremia; S42.251A Displaced fracture of greater tuberosity of right humerus, initial encounter for closed fracture; I50.32 Chronic diastolic (congestive) heart failure; E78.00 Pure hypercholesterolemia, unspecified; J44.9 Chronic obstructive pulmonary disease, unspecified; I11.0 Hypertensive heart disease with heart failure; F41.9 Anxiety disorder, unspecified; W18.39XA Other fall on same level, initial encounter; G89.29 Other chronic pain; D17.79 Benign lipomatous neoplasm of other sites; E03.9 Hypothyroidism, unspecified; Z86.73 Personal history of transient ischemic attack (TIA), and cerebral infarction without residual deficits; Z79.899 Other long term (current) drug therapy; Z95.0 Presence of cardiac pacemaker; Z79.01 Long term (current) use of anticoagulants; Y93.89 Activity, other specified; Y99.8 Other external cause status; Y92.89 Other specified places as the place of occurrence of the external cause
CPT/HCPCS: 36415; 70450; 73030; 73200; 80048; 80053; 83540; 83550; 83735; 85025; 86704; 86705; 86706; 87081; 87340; 90686; 90732; 93306; 94640; 94760; 97110; 97116; 97161; 97530; 99285; A4565; A6250; G0378; J1170; J1171; J2270; J2405; J2470; J7030